=== PATIENT | female | born 2000 | race Caucasian/White ===

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

== ENCOUNTER → 2020-11-10 11:31 | Outpatient (CLI) | payer OTHER, SELFPAY ==
[2020-11-10 10:43] VITALS: BMI 20.6
[2020-11-10 12:20] LABS: Estradiol 30.5 pg/mL; Follicle Stimulating Hormone 7.7 mIU/mL; Luteinizing Hormone 5.7 mIU/mL; Prolactin 8.5 ng/mL; Thyroid Stim Hormone (TSH) 1.62 uIU/mL (0.358-3.74)
[2020-11-10 13:07] LABS: HIV - WCH Non-Reactive (Nonreactive); Hepatitis C Antibody Non-Reactive (Nonreactive)
[2020-11-10 19:39] LABS: Chlamydia Trachomatis by PCR Negative (Negative); Neisserai gonorrhoeae by PCR Negative (Negative); Probe Check PASS; Sample Adequacy Control PASS; Specimen Processing Control PASS
[2020-11-16 01:27] LABS: Rapid Plasmin Reagin (RPR) NONREACTIVE (NONREACTIVE)
== END ==
PROVIDERS: PCP Family Medicine; Referring Provider Obstetrics & Gynecology; Visit Provider Obstetrics & Gynecology
DX: Z11.3 Encounter for screening for infections with a predominantly sexual mode of transmission (principal); N92.6 Irregular menstruation, unspecified
CPT/HCPCS: 36415; 82670; 83001; 83002; 84146; 84443; 86592; 86703; 86803; 87491; 87591

== ENCOUNTER → 2021-01-29 16:34 | Outpatient (CLI) | payer OTHER, SELFPAY ==
[2021-01-29 13:01] VITALS: BMI 20.4
== END ==
PROVIDERS: PCP Family Medicine; Visit Provider Obstetrics & Gynecology
DX: R10.2 Pelvic and perineal pain (principal)
CPT/HCPCS: 87070; 87205

== ENCOUNTER 2021-07-04 19:11 | Emergency (ER) | payer OTHER, SELFPAY ==
[2021-07-04 19:13] VITALS: BP 105/67; PULSE 74; RESP 17; TEMP 36.1; O2SAT 98; BMI 21.9
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
[2021-07-04] MEDS: Lidocaine 1% (20 ml mdv) 20 ML Vial INFILT (21:22)
[2021-07-04] MEDS: Lidocaine/Epi/Tetracaine 50 ML 1 APPLIC TOPICAL (21:22)
[2021-07-04 21:23] VITALS: RESP 18
--- NOTE | 2021-07-05 15:04 | CM.ED ---
SONU Note: SONU called patient. She indicated she was just getting home from the appointment at [facility]. Patient said that she is doing ok. Patient said that she is tired from being in the ED late last night. Patient said that she went to hr appointment at [facility] and is scheduled to began PHP/IOP at the end of next week. Patient indicated she is doing better today than the previous day. Patient denied any SI/HI. Patient was asked if she had any issues or concerns and she said no. No further MH needs at this time. Plan: [facility] Janeen JAVED
== END 2021-07-04 21:24 | disposition home or self-care (01) ==
PROVIDERS: Emergency Provider Emergency Medicine; PCP Family Medicine
DX: S61.215A Laceration without foreign body of left ring finger without damage to nail, initial encounter (principal); F32.9 Major depressive disorder, single episode, unspecified; Z79.3 Long term (current) use of hormonal contraceptives; Z79.899 Other long term (current) drug therapy; W26.0XXA Contact with knife, initial encounter
CPT/HCPCS: 12001; 99283

== ENCOUNTER 2021-07-10 09:52 | Outpatient (RCR) | payer OTHER, SELFPAY ==
--- NOTE | 2021-07-10 09:10 | BH.SGPN.GN ---
Behaviors/Verbalizations/Mental Status: [] Eye contact is good. Motor activity is appropriate. Appearance is neat. Speech is Appropriate. Mood is depressed. Affect is flat. Thoughts are linear and logical. No evidence of psychosis. Reviewed daily check in sheet and no reports of suicidal ideations or intent. Client Response/Progress/Benefit: [] Pt participated at times during group discussion. Attentive. Provided appropriate feedback to peers. Today was her first day in IOP and she reports that she is hoping that IOP will provided her with a ?better mindset? and ?motivation? which have been impacted by her depression. No progress noted as this was her first day. Benefited from group support and encouragement. Group welcomed pt to the group and provided her with advice regarding first day and week in IOP. Will continue in IOP to maintain safety and improve functioning to return to work. Narrative Note: []
--- NOTE | 2021-07-10 10:06 | BH.SGPN.GN ---
Behaviors/Verbalizations/Mental Status: [] Client alert and oriented, casually dressed and groomed. Eye contact good. Motor activity appropriate. Speech within normal limits. Affect congruent, mood depressed. Thoughts linear, logical, no signs of hallucinations or delusions. Client Response/Progress/Benefit: []Pt was well engaged in group AEB taking notes, listening attentively, and providing some input throughout. Attentive during psychoeducation and discussed the importance of goal-setting with the group. Pt indicated ?If I don?t celebrate progress, I might not notice I am getting better or feel like I?m making progress?. Group identified potential benefits of having goals include: they motivate, increase self-esteem, and are needed to have progress, give a sense of accomplishment, and provide a sense of purpose. Group also worked together to identify barriers to goal-setting which included; negative self-talk, lack of motivation, unrealistic expectations, and procrastination. Pt identified personal barrier as lack of motivation and noted that positive affirmations have helped her to feel more motivated in the past. Benefited from increased awareness of benefits and barriers to goal-setting. Pt will continue in IOP to prevent decompensation, reduce depressive and anxiety sx, and improve daily functioning. Narrative Note: []
--- NOTE | 2021-07-10 11:15 | BH.SGPN.GN ---
Behaviors/Verbalizations/Mental Status: []Client alert and oriented, casually dressed and groomed. Eye contact good. Motor activity appropriate. Speech within normal limits. Affect constricted, mood dysthymic. Thoughts linear, logical, no signs of hallucinations or delusions. Client Response/Progress/Benefit: []Pt was an active participant in group discussions and activities. Engaged in activity. Pt identified a SMART goal for the next week which was do 5 minutes of meditation five minutes daily. Reported daily meditation has improved her mental health in the past so would be helpful to get back into the routine. Identified decreased concentration as a barrier. Pt reported she can overcome that barrier by finding a quiet, calming place to sit or complete meditation on a walk. Benefited from group by being able to utilize SMART educate to create a goal. Pt's first day in IOP. Pt to continue IOP to increase healthy coping, improve daily functioning and prevent decompensation. Narrative Note: []
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
[2021-07-11 09:39] VITALS: BP 106/64; PULSE 69
--- NOTE | 2021-07-11 10:10 | BH.SGPN.GN ---
Behaviors/Verbalizations/Mental Status: [] Eye contact is good. Motor activity is appropriate. Appearance is casual. Speech is Appropriate. Mood is depressed. Affect is flat. Thoughts are linear and logical. No evidence of psychosis. Client Response/Progress/Benefit: [] Pt was an active participant in group discussions. Attentive during psychoeducation. Pt along with peers added their perspective on the definition of stigma as it relates to mental health. Pt participated in interactive group discussion on the topic. Pt along with peer identified how stigma can impact one which included; keeps one more depressed, keeps one from recognizing or addressing mental health, keeps us with showing and being honest about our emotions, keeps one from opportunities, can keep one from social and interacting with friends/family, etc, can impact relationships, and can keep one from seeking help for fear of being labeled. Benefited from increased awareness of mental health stigma and how it could impact patient. Will continue in IOP to maintain safety, increase helathy coping, and improve functioning to return to work. Narrative Note: []
--- NOTE | 2021-07-11 11:15 | BH.SGPN.GN ---
Behaviors/Verbalizations/Mental Status: []Client alert and oriented, casually dressed, hygiene appeared to be tended to. Eye contact fair. Motor activity appropriate. Speech within normal limits. Affect constricted, mood dysthymic. Thoughts linear, logical, no signs of hallucinations or delusions. Client Response/Progress/Benefit: []Client engaged participant AEB pt provided some input during small group discussion, taking notes and listening attentively to others. Group brainstormed strategies to combat social and perceived stigma which included: educating others, no longer using negative language about mental illness, being open about mental health, and not reinforcing stigma with behaviors or labels. Client did not share goal to challenge mental health stigma. Client's first week in IOP. Appeared to benefit from increasing awareness of strategies to combat stigma. Will continue IOP tx to increase healthy coping, improve daily functioning and prevent decompensation.
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
--- NOTE | 2021-07-11 13:26 | BH.DR.ITP ---
Initial Treatment Plan Patient Information Visit Information: ADMISSION DATE: EXPECTED LOS: 4-6 weeks Problems/Symptoms Problem #1:: Depression Symptom:: Sadness, hopelessness, anhedonia, decreased appetite, erratic sleep, low energy, decreased concentration, passive suicidal ideation, passive thoughts of Problem #2:: Anxiety Symptom:: Worry, rumination, panic attacks, avoidance
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
--- NOTE | 2021-07-12 09:05 | BH.SGPN.GN ---
Behaviors/Verbalizations/Mental Status: [] Eye contact is good. Motor activity is appropriate. Appearance is casual. Speech is Appropriate. Mood is depressed. Affect is flat. Thoughts are linear and logical. No evidence of psychosis. Reviewed daily check in sheet and pt reports 1/5 for suicidal thoughts and 0/5 for intent. This is baseline for pt. Client Response/Progress/Benefit: [] Pt participated at times during the group discussions. Attentive. Mental health win was attending a dinner with support and completing ADLs (shower). Emotion for today is blah. Shared with the group her brother's chronic issues with substance abuse which have impacted her and her family. Brother recently got into more legal issues which has impacted her mental health and the family dynamic as they struggle with his addiction. Group provided feedback and support which was beneficial. Will continue in IOP to maintain safety, increase healthy coping, and improve functioning. Narrative Note: []
--- NOTE | 2021-07-12 11:12 | BH.SGPN.GN ---
Behaviors/Verbalizations/Mental Status: []Client alert and oriented, casually dressed and appropriately groomed. Eye contact fair. Motor activity appropriate. Speech within normal limits. Affect constricted, mood dysthymic. Thoughts linear, logical, no signs of hallucinations or delusions. Client Response/Progress/Benefit: []Client was a passive participant AEB providing limited input, however did appear to listen attentively to others. Connected with group topic of perspective and the impacts of one?s perspective on mental health. Client worked with the group to identify impact of a negative perspective which included: all or nothing thinking, increased negative self-talk, and hurts relationships. Client appeared to benefit from increasing understanding of mental health benefits of a positive perspective and potential consequences to progress when perspective is negative. Client is to continue IOP to increase healthy coping, improve daily functioning and prevent decompensation.
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
--- NOTE | 2021-07-17 09:00 | BH.SGPN.GN ---
Behaviors/Verbalizations/Mental Status: []Client alert and oriented, casually dressed and groomed. Eye contact good. Motor activity appropriate. Speech within normal limits. Affect congruent, mood reported as stressed but confident. Thoughts linear, logical, no signs of hallucinations or delusions. Reviewed client?s symptom tracker, no risk for suicidal ideation, plan, or intent as of 07/17/21 Client Response/Progress/Benefit: []Client responded well to session AEB attentiveness, proving input, and willing to process with group. Client reports feeling ?confident? today and attributes this to successfully completing the 3 goals she had set for herself over the weekend. Noted allowing herself to acknowledge these accomplishments as progress and give herself credit for them which is something she has traditionally struggled to do. Client went on to discuss additional skills she is using, such as meditation, reaching out to supports, and spending more time outdoors. Indicates that having things to do has helped with reducing mental health symptoms and prevents her from ruminating on current stressors. Discussed struggling with anxious thoughts regarding her finances as she is no longer working, as well as worrying about her brother and the ongoing stressors he is dealing with. Connected with and appeared to benefit from fellow participants discussing trying to focus on what is within their control rather than ruminating on things outside of their control. Noted plans to try and create a schedule of small goals for the week to continue to promote positive mood. Recommended continued IOP tx to improve ability to identify and challenge distortion which reinforce anxiety and mood instability, continue to promote engagement in self-care activities, and further improve communication with supports. Narrative Note: []
--- NOTE | 2021-07-17 10:08 | BH.SGPN.GN ---
Behaviors/Verbalizations/Mental Status: []Client alert and oriented, casually dressed and groomed. Eye contact good. Motor activity appropriate. Speech within normal limits. Affect constricted, mood anxious. Thoughts linear, logical, no signs of hallucinations or delusions. Client Response/Progress/Benefit: []Pt was an active participant in group discussion AEB taking notes and providing input throughout. Attentive during psychoeducation reviewing internal and external obstacles and provided examples throughout. Participated in the reflection activity in which clients mandy pictures depicting their current and desired reality and shared with the group. Pt described her current reality as ?stuck and unmotivated, but also kind of content with being stuck.? Pt described her desired reality as ?having energy again, no waking up wishing I wasn?t here, and being happy.? Pt reflected on strengths she has that will help pt get to desired reality such as taking her medication and ?taking everything home with me from group.? Benefited from group by increasing awareness of current reality and strengths. Will continue IOP tx to prevent decompensation, reduce negative thinking, and improve overall functioning. Narrative Note: []
--- NOTE | 2021-07-17 11:06 | BH.SGPN.GN ---
Behaviors/Verbalizations/Mental Status: []Client alert and oriented, casually dressed and groomed. Eye contact good. Motor activity appropriate. Speech within normal limits. Affect congruent, mood euthymic. Thoughts linear, logical, no signs of hallucinations or delusions. Client Response/Progress/Benefit: []Client engaged during activity and provided ideas on how to cope with internal barriers that keep clients stuck from moving towards goals. Client able to identify barriers to desired reality. Identified barriers to current reality to include: lack of motivation, feeling content with being stuck, and lack of social interaction. Client wants to work on overcoming the barrier of feeling content with being stuck by purposefully getting herself out of her comfort zone. Client plans to tell her boyfriend about her goal to help hold her accountable. Benefited from group by identifying obstacles and solutions to desired reality. Client will continue IOP tx to reduce isolation, increase use of healthy coping skills, and improve overall functioning. Narrative Note: []
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
--- NOTE | 2021-07-19 09:00 | BH.SGPN.GN ---
Behaviors/Verbalizations/Mental Status: []Client alert and oriented, casually dressed and groomed. Eye contact good. Motor activity appropriate. Speech within normal limits. Affect constricted, mood irritable. Thoughts linear, logical, no signs of hallucinations or delusions. Reviewed client?s symptom tracker, no risk for suicidal ideation, plan, or intent as of 07/19/21 Client Response/Progress/Benefit: []Client responded well to session, providing supportive statements and attentive. Client reports feeling agitated and irritable this morning. Client shared she is not sure what is making her more irritable, but client thinks it may because she is not working right now which makes client anxious about money. Client stated when she is irritable she just wants to isolate, but she pushed herself to go to the fair yesterday. Client also shared that being here today is a mental health win because she did not want to come. Client admits that she has not been working on her goals from IOP and was encouraged to practice self-compassion to help bounce back. Appeared to benefit from receiving feedback from group on how to cope with irritability. Progress noted in client's consistent attendance, but client continues to struggle with mood instability. Will continue IOP tx to gain healthy coping skills, reduce distorted thought patterns, and improve functioning. Narrative Note: []
--- NOTE | 2021-07-19 10:10 | BH.SGPN.GN ---
Behaviors/Verbalizations/Mental Status: []Client alert and oriented, casually dressed and groomed. Eye contact good. Motor activity WNL. Speech within normal limits. Affect congruent, mood dysthymic. Thoughts linear, logical, no signs of hallucinations or delusions. Client Response/Progress/Benefit: []Client responded well to session, attentive and engaged throughout discussion and activity. Agreed with session quote and shared ?if you let fear keep you from things then you will only continue to stay stuck where you are?. The group discussed how mindset, one?s reaction to setbacks, and expectations for success determines progress. Client shared fear of letting self or others down has reinforced her fear of failure in the past and led to client not taking changes or giving up. Client appeared to benefit from gaining awareness of the impact fear of failure can have on one?s mental health and wellbeing, noting connecting with how fear of failure may reinforce depression. Progress noted as client continues gain insight and coping skills which have improved depressive symptoms, however struggles with consistency. Will continue IOP to reduce symptoms, combat distortions reinforcing depression and anxiety, and improve daily functioning. Narrative Note: []
--- NOTE | 2021-07-19 11:12 | BH.SGPN.GN ---
Behaviors/Verbalizations/Mental Status: []Client alert and oriented, casually dressed and groomed. Eye contact good. Motor activity appropriate. Speech within normal limits. Affect congruent, mood dysthymic, anxious. Thoughts linear, logical, no signs of hallucinations or delusions. Client Response/Progress/Benefit: []Client responded well to session, engaged in the experiential activity and attentive throughout group processing. Discussed that encouragement from the group aided in reducing negative self-talk and overcoming fear of failure. Client completed the fear of failure worksheet and reported that fear of failure has kept client from ?continuing to pursue goals? and ?returning to the gym?. Client able to identify thoughts and behaviors that reinforce personal fear of failure which included: past negative experiences, fear of not living up to past successes, procrastination, toxic people, and doubting her ability to change. Client attentive during discussion of the different strategies to help overcome fear of failure. Identified wanting to work on being more receptive and open-minded to new and different things or opinions in order to overcome fear of failure. Client has made progress with improving use of opposite action and small goal setting but continues to struggle with consistency and disqualifying the positives. Client will continue IOP tx to promote ongoing behavior activation skill application, reduce depression, and improve engagement in activities she enjoys. Narrative Note: []
--- NOTE | 2021-07-20 09:03 | BH.SGPN.GN ---
Behaviors/Verbalizations/Mental Status: []Eye contact is good. Motor activity is appropriate. Appearance is casual. Speech is Appropriate. Mood is anxious, agitated. Affect is congruent. Thoughts are linear and logical. No evidence of psychosis. Reviewed daily check in sheet, pt reports suicidal ideations as a 1/5 which is consistent to baseline, denies any plan or intent as of this date. Client Response/Progress/Benefit: []Pt receptive of session, participated during the group discussion, and willing to process with group. Emotion for today is reported as ?anxious and angry? to which she attributes difficulties in adjusting to not being employed at this time, wanting to be doing ?better? mental health rodriguez, and family related stressors. Discussed her entire family has COVID right now and although she has not been in contact with them recently, she now must go even longer without reaching out to them. Noted however that her family can be stressful for client and that this may give her an opportunity to take a break and focus on her own self-care. Able to identify a mental health win as accomplishing several small tasks around the house. Notes that this would normally be something she would put off and distract herself with other things. Noted doing well to give herself credit for accomplishing these tasks as she struggles with minimization at times. Continues to struggle with negative self-talk and inconsistent skill application. Recommended continued IOP tx to improve consistent skill application, increase communication with healthy supports, and continue to promote small goal accomplishments. Narrative Note: []
--- NOTE | 2021-07-20 10:10 | BH.SGPN.GN ---
Behaviors/Verbalizations/Mental Status: [] Eye contact is good. Motor activity is appropriate. Appearance is casual. Speech is Appropriate. Mood is depressed. Affect is flat. Thoughts are linear and logical. No evidence of psychosis Client Response/Progress/Benefit: [] Pt was an active participant in group discussion. Attentive during psychoeducation on Conflict Styles ( Avoidant, Competing, Accommodating, and Cooperative). Participated in interactive group discussion on why we tend to avoid conflict. Pt along with peers identified several reasons conflict is often avoided which included; don't want to deal with it, anxiety, it can be awkward, can cause more problems, don't want to get hurt, don't want to hurt others, and fear of rejection. Pt along with peers also identified the reasons why we need conflict which included; helps us set boundaries, advocacy, helps us express needs/emotions, and can improve relationships. Benefited from increased awareness on conflict styles. Will continue in IOP to maintain safety, increase healthy coping, and to improve functionig. Narrative Note: []
--- NOTE | 2021-07-20 11:10 | BH.SGPN.GN ---
Behaviors/Verbalizations/Mental Status: []Client alert and oriented, casually dressed and groomed. Eye contact good. Motor activity appropriate. Speech within normal limits. Affect congruent, mood agitated. Thoughts linear, logical, no signs of hallucinations or delusions. Client Response/Progress/Benefit: []Client engaged in session AEB contributing to discussion and engaging in activity. Client did well to review current conflict style and its impact on mental health. Acknowledged the impact being accommodating and competing has on client?s mental health. Attentive and taking notes during discussion on strategies for more effectively managing conflict in personal life. Client participated in activity and client appeared to struggle with listening to peers? suggestions at times. Client wants to work on not using degrading language and taking a time out when her emotions get too high. Client got feedback from team facilitator and peers on how to verbalize taking a break to one?s partner. Appeared to benefit from gaining strategies to help client better manage conflict. Will continue IOP tx to increase emotional regulation skills, reduce isolative behaviors, and improve overall functioning. Narrative Note: []
--- NOTE | 2021-07-24 09:00 | BH.SGPN.GN ---
Behaviors/Verbalizations/Mental Status: []Eye contact is good. Motor activity is appropriate. Appearance is casual. Speech is Appropriate. Mood is depressed. Affect is congruent. Thoughts are linear and logical. No evidence of psychosis. Reviewed daily check in sheet and no reports of suicidal ideations, plan, or intent. Client Response/Progress/Benefit: []Pt receptive of group, contributing supportive feedback and nodding in relation to others as they shared. Identified emotion for the day as ?warn out? and attributes this to feeling negative and ?down? over the weekend. Initially shared feeling she did not have many ?wins? to report as a result of her negative mood the past few days; however, with encouragement identified several wins. Wins noted as refraining from using unhealthy coping skills when feeling ?off? over the weekend. This is progress as client has a hx of unhealthy means of coping when emotionally dysregulated. Additional win noted as running several times over the weekend and going out to dinner with her boyfriend. Discussed struggling with anxiety during the dinner and began to disqualify this as a positive. Appeared to benefit from working with therapist and fellow participants to combat distortions associated and identify several skills used to manage anxious thoughts throughout the dinner. Continues to struggle with externalization and minimization of progress. Recommended continued IOP tx to improve ability to identify and challenge thought distortions, reduce negative self-talk, and improve mood stability. Narrative Note: []
--- NOTE | 2021-07-24 10:08 | BH.SGPN.GN ---
Behaviors/Verbalizations/Mental Status: []Client alert and oriented, casually dressed and groomed. Eye contact good. Motor activity appropriate. Speech within normal limits. Affect congruent, mood dysthymic. Thoughts linear, logical, no signs of hallucinations or delusions. Client Response/Progress/Benefit: []Client engaged during session AEB client contributing during discussion and completing worksheet. Connected with discussion on crisis and how coping with external crises by using unhealthy coping skills could result in a personal crisis. Group reflected on the importance of having awareness of personal warning signs to prevent reaching crisis point. Group identified potential warning signs for crisis and client completed the personal warning signs worksheet. Client identified personal crisis warning signs to include: getting easily agitated, lack of motivation, and not wanting to take care of herself. Client benefited by increasing awareness of what leads to crisis and personal warning signs. Client will continue IOP tx to increase emotional regulation skills, improve daily functioning, and improve mood stability. Narrative Note: []
--- NOTE | 2021-07-24 11:15 | BH.SGPN.GN ---
Behaviors/Verbalizations/Mental Status: []Client alert and oriented, casually dressed and groomed. Eye contact fair. Motor activity appropriate. Speech within normal limits. Affect congruent. Mood euthymic. Thoughts linear, logical, no signs of hallucinations or delusions. Client Response/Progress/Benefit: []Client responded well to session as evidenced by client listening attentively to others and providing strategies during discussion. Client identified personal warning signs for crisis and gained further awareness of earliest warning signs. Client created a crisis action plan to help client better manage warning signs for crisis. Client?s action plan for no motivation included: set short-term goals, opposite action, increase positive thoughts, go for a walk and do something enjoys. Client appeared to benefit from creating a crisis action plan and increasing self-awareness. Client to continue IOP tx to increase healthy coping, improve motivation, and prevent decompensation.
--- NOTE | 2021-07-26 10:10 | BH.SGPN.GN ---
Behaviors/Verbalizations/Mental Status: [] Eye contact is good. Motor activity is appropriate. Appearance is casual. Speech is Appropriate. Mood is depressed. Affect is flat. Thoughts are linear and logical. No evidence of psychosis. Client Response/Progress/Benefit: [] Pt was an active participant in group discussion and activity. Attentive during psychoeducation on the stages of change. Pt participated in interactive discussion on emotions associated with change (happy, ecstatic, lonely, shocked, surprised, lonely, etc). Pt along with peers identified barriers that may prevent one from making change which included; stuck in routine, habits, fear, others, and responsibilities. Group able to identify the benefits to changes such as personal growth, feeling more positive, increased confidence, healthier environment, improved relationships, and obtaining goals. Benefited from increased awareness of emotions related to change, the change process, and benefits/barriers to change. Will continue in IOP to maintain safety, increase healthy coping, and to improve functioning to return to work. Narrative Note: []
--- NOTE | 2021-07-26 15:33 | BH.MDN_ITS ---
Multi-Disciplinary Note - Note 30-min Individual Time Started:: 11:45 Date: 07/26/21 Purpose of session/treatment goals addressed:: Purpose of session was to address goal 1 from MTP. Eye Contact:: Good Motor Activity:: Appropriate Appearance:: Casual Speech:: Appropriate Mood:: Euthymic Affect:: Congruent Thoughts:: Linear, Logical, No evidence of hallucinations/delusions noted Staff Interventions:: thought challenging, CBT techniques, strengths pers pective, goal setting, taught coping skills Client Response:: Pt reported she accomplished her goals from last session of running at least 3 days, cleaning bathroom and hung out with a friend. Pt stated it was rewarding to recognize the positives she was able to accomplish. Pt stated she is still struggling with what she should do about work. Pt worked with therapist to identify concerns about returning to job. Pt stated she has applied for seeral other jobs that she believes would provide less stress. Pt reported main concern is returning to the job that she knows could potentially be triggering. Pt agreeable to identify pros/cons of returning to job and pros/cons of finding a different job. Pt shared she is still feeling distant from people in her life. Pt stated she will get irritable over small things. Pt reported she is putting forth more effort to stop herself before being reactive which has been helpful. Pt stated positive self-talk and breathing as helpful skills to prevent the reactivity. Pt discussed triggers for her don't care attitude which include when her mom complains about pt's dad and when her boyfriend accuses her of liking another girl since pt identifies as bisexual. Reviewed strategies to help manage identified triggers. Pt agreed talking with boyfriend about his trigger could be helpful but she isn't ready to have that conversation yet. Pt identified goals include: run 3 days and make pro/cons list about work. Risks/Concerns:: pt denies suicidial ideation, plan or intention to date. Progress Toward Goals/Plan:: Progress noted with pt following through with identified small goals last individual session. Pt notes improvement in mood with decrease in depression. Pt utilizing opposite action which has helped pt return to activities she used to enjoy doing. Pt continues to struggle with irritability but starting to use skills to manage in the moment. Pt to continue IOP to reinfroce healthy coping skills, challenge distorted thoughts and prevent decompensation. Time Stopped:: 12:20
--- NOTE | 2021-07-27 09:00 | BH.SGPN.GN ---
Behaviors/Verbalizations/Mental Status: []Pt eye contact good, casually dressed, motor activity appropriate, speech normal rate and tone, mood dysthymic, constricted affect, thoughts linear and intact, no evidence of delusions or hallucinations. Reviewed client?s symptom tracker, no signs of suicidal ideation, plan, or intent as of today. Client Response/Progress/Benefit: []Pt responded well to session AEB by listening to others and sharing thoughts and feelings. Pt identified mental health positive as taking cat to vet yesterday, which she had been avoiding. Pt stated additional mental health positive as feeling less irritated yesterday and not having any arguments with her boyfriend. Pt identified stressor as not sure if she wants to return to her job because is nervous it will be triggering. Pt accepted feedback from peers. Pt to continue IOP to increase daily functioning, challenge distorted thoughts and prevent decompensation. Narrative Note: []
--- NOTE | 2021-07-27 09:05 | BH.SGPN.GN ---
Behaviors/Verbalizations/Mental Status: Eye contact is good. Motor activity is appropriate. Appearance is casual. Speech is appropriate. Mood is anxious. Affect is congruent. Thoughts are linear and logical. No evidence of psychosis. Reviewed daily check in sheet with no reports of suicidal ideations, plan, or intent. Client Response/Progress/Benefit: Client was attentive and engaged throughout group session. Client reports her mood of the day as grateful. Discussed a stressor of having a triggering dream regarding a traumatic event. Client?s anxiety is higher because client currently cannot visit due to the family being in quarantine due to COVID-19. Clinician and group normalized these feelings and offered suggestions such as video calling her family, which the client appeared to benefit from. Client stated she fed her cat and took a shower, which she identified as wins with prompting from clinician. Client indicates per daily symptom tracker no self harm urges which is a win, as it is decreased from previous sessions this week. Will continue IOP treatment to improve functioning, enhance knowledge and application of healthy coping skills, and prevent decompensation. Narrative Note: []
--- NOTE | 2021-07-27 10:13 | BH.SGPN.GN ---
Behaviors/Verbalizations/Mental Status: [] Client alert and oriented, casually dressed and groomed. Eye contact good. Motor activity appropriate. Speech within normal limits. Affect congruent, mood anxious and dysthymic. Thoughts linear, logical, no signs of hallucinations or delusions. Client Response/Progress/Benefit: [] Client active participant AEB providing contributions during group discussion, taking notes, and appeared to listen attentively to peers. Client connected with the topic of relationships. Helped group discuss the benefits of relationships as well as the potential factors maintaining unhealthy relationships. Client stated that unhealthy relationships can lead to difficulties in setting and maintaining boundaries or feeling capable of saying ?No?. She went on to discuss ?we may fall into toxic relationships when toxic behaviors are normalized by other relationships we see. This takes a long time to realize?. Helped group identify the risk factors for unhealthy relationships which included: poor self-esteem, trauma, loneliness, learned behaviors, and not taking care of own mental health. Worked with group to develop a list of the consequences that unhealthy relationships have on mental health. Appeared to benefit from increasing awareness of the impact unhealthy relationships can have on mental health. Pt to continue IOP to maintain depression and healthy coping, as well as continue to promote engagement in healthy supportive activities. Narrative Note: []
--- NOTE | 2021-07-27 11:15 | BH.SGPN.GN ---
Behaviors/Verbalizations/Mental Status: []Client alert and oriented, casually dressed and groomed. Eye contact good. Motor activity appropriate. Speech within normal limits. Affect congruent, mood euthymic. Thoughts linear, logical, no signs of hallucinations or delusions. Client Response/Progress/Benefit: []Client responded well to session, engaged and taking notes. Attentive during psychoeducation about characteristics of healthy, unhealthy and abusive relationships. Client identified within her relationship both herself and partner do well with being respectful to each other. client stated she wants to work on improving her communication by talking with her boyfriend openly about issues versus avoiding tough conversations. Appeared to benefit from brainstorming strategies to build healthier relationships. Will continue IOP tx to reduce negative thoughts, improve healthy coping and prevent decompensation. Narrative Note: []
--- NOTE | 2021-07-31 09:05 | BH.SGPN.GN ---
Behaviors/Verbalizations/Mental Status: []Client alert and oriented, casually dressed and groomed. Eye contact good. Motor activity appropriate. Speech within normal limits. Affect constricted-incongruent to mood, mood euthymic. Thoughts linear, logical, no signs of hallucinations or delusions. Reviewed client?s symptom tracker, no risk for suicidal ideation, plan, or intent as of 07/31/21 Client Response/Progress/Benefit: C[]Client responded well to session, attentive and providing feedback to peers. Client reports feeling refreshed and relaxed this morning. Client stated she got new furniture and a TV this weekend which is a mental health win because now my house is exactly how I want it to be. Client reports this makes her feel safe and comfortable. Client stated this weekend she and her boyfriend hosted family and their house and this triggered anxiety. Client shared she used calming skills and self-talk to regulate her emotions which resulted in client having a good time instead of avoiding. Client reports another mental health win is that she has a job interview later today. Appeared to benefit from reflecting on use of healthy coping skills. Progress noted as client denies any thoughts of suicide and reduced irritability on the daily symptom tracker. Will continue IOP tx to promote mood stability, increase healthy coping skills, and further improve functioning. Narrative Note: []
--- NOTE | 2021-07-31 10:15 | BH.SGPN.GN ---
Behaviors/Verbalizations/Mental Status: []Client alert and oriented, casually dressed and groomed. Eye contact good. Motor activity appropriate. Speech within normal limits. Affect congruent, mood euthymic. Thoughts linear, logical, no signs of hallucinations or delusions. Client Response/Progress/Benefit: []Client receptive to session, participating throughout. Provided input as the group brainstormed the positive and negative aspects of stress on physical and mental health. Group did well to identify the benefits of stress as well as the impact of distress on performance and mental health. 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 Client reports when the stress overflows client reacts with anger outbursts, then panic attacks, hurts self and ends up in the hospital. Client seemed to benefit from increased awareness of current stressors and impact stress has on mental health. Recommended to continue IOP tx to continue use of healthy coping, challenge distorted thoughts and prevent decompensation. Narrative Note: []
--- NOTE | 2021-07-31 11:15 | BH.SGPN.GN ---
Behaviors/Verbalizations/Mental Status: []Client alert and oriented, casually dressed and groomed. Eye contact good. Motor activity appropriate. Speech within normal limits. Affect congruent, mood stressed, dysthymic. Thoughts linear, logical, no signs of hallucinations or delusions. Client Response/Progress/Benefit: [] Client engaged throughout AEB providing input, taking notes, and actively participating in challenge activity. Client provided suggestions and encouragement, as well as listened to other participants? ideas throughout. Able to make connections between activity and stress management skills in daily life. Shared that she had to remind herself ?It?s a game. It?s supposed to be fun.? And challenge herself to ?put it in perspective? which client noted as imported when facing daily stressors as well. Client remained attentive and contributed during discussion about the 4 A's of managing stress, expressing connection with the various benefits of each. Shared wanting to continue to practice the skills of acceptance, noting that she is trying to remember she has to accept her family as they are but that she is allowed to set boundaries and limit time with then when feeling overwhelmed or unsupported. Client seemed to benefit from increased awareness of the impact of stress on mental health and increasing repertoire of stress management strategies. Will continue IOP tx to prevent decompensation, improve use of self-care and boundary setting, as well as continue to promote healthy self-talk. Narrative Note: []
--- NOTE | 2021-08-01 09:05 | BH.SGPN.GN ---
Behaviors/Verbalizations/Mental Status: Eye contact is good. Motor activity is appropriate. Appearance is casual. Speech is appropriate. Mood is euthymic. Affect is congruent. Thoughts are linear and logical. No evidence of psychosis. Reviewed daily check in sheet with no reports of suicidal ideations, plan, or intent. Client Response/Progress/Benefit: Client was engaged and attentive, providing insight to others throughout group session. Reported her emotion of the day as ?relaxed?. Client expressed feeling good about seeing her sister yesterday, who the client reports as a support. Client stated a combined stressor and win is having an interview today. She reports being excited about getting herself out there, but is unsure if she is ready to return to work. Appeared to benefit from supportive group environment and discussion related to work stressors. Client indicates per daily symptom tracker low/moderate depressed mood, anxiety, low agitation, and self harm urges, which she used alternative coping skills to prevent. She stated per daily symptom tracker overall mood and level of functioning has been the same. Will continue IOP treatment to prevent decompensation, maintain safety with healthy coping skills, and increase depression management. Narrative Note: []
--- NOTE | 2021-08-01 10:15 | BH.SGPN.GN ---
Behaviors/Verbalizations/Mental Status: [] Eye contact is good. Motor activity is appropriate. Appearance is neat. Speech is Appropriate. Mood is euthymic. Affect is full. Thoughts are linear and logical. No evidence of psychosis. Client Response/Progress/Benefit: [] Pt was an active participant in group discussion and activity. Attentive during psychoeducation on what it means to take action. Pt identified symptoms that she wants to take gain control over which included avoidance, anger, lack of motivation. Reports that if he was able to gain control over these than she would be healthier and complete more self-care. Increased insight into what could be holding patient back from mental wellness and the importance of taking action on symptoms and obstacles rather than avoiding or ignoring. Will continue in IOP to maintain safety, increase healthy coping, and improve functioning to return to work. Narrative Note: []
--- NOTE | 2021-08-01 11:10 | BH.SGPN.GN ---
Behaviors/Verbalizations/Mental Status: []Client alert and oriented, casually dressed and groomed. Eye contact good. Motor activity appropriate. Speech within normal limits. Affect congruent, mood euthymic. Thoughts linear, logical, no signs of hallucinations or delusions. Client Response/Progress/Benefit: []Client responded well to session, taking notes and participating in worksheet discussion. Client set a goal to gain control over her overacting to small problems. Client plans to work on this by allowing herself to sit with the uncomfortable emotions for 20 minutes, use a calming skill, and then decide what she needs to do. Client reports she will need to give herself time and space to process the emotion and to reflect on what triggered the emotion. Progress noted as client has increased self-awareness and is applying skills outside of IOP. Appeared to benefit from identifying a small goal to benefit mental health. Will continue IOP tx to promote emotional regulation skills and further decrease intensity of symptoms. Narrative Note: []
--- NOTE | 2021-08-01 12:29 | PCM.BH.PN ---
Progress Note Progress Note: History of Present Illness/Interim History: [] Patient is a 21-year-old female who is seen in follow-up at the [facility] behavioral health IOP program. I last saw the patient 3 weeks ago and at that time Lamictal was added to her medication regimen. The patient is tolerating the medication well and has been taking it about 3 weeks. Her mood remains irritable and she feels anger at times but has not had any anger outbursts. Energy level is better lately and she denies feeling hopeless now. She denies any urges for self-harm or actions of self-harm. She denies any panic attacks for the past 3 weeks. She is now drinking 1-2 drinks of alcohol about twice a week. She is trying to decide on job options for her future. She feels she is learning valuable skills in the IOP program. She admits to having occasional passive thoughts of . She denies any suicidal ideation. She has extremely rare thoughts of self-harm like cutting but has not had any recently. Current Psychiatric Medications: [] Celexa 40 mg p.o. daily (on this for 6 months dose increased 2 months ago); Lamictal starter pack, on 50 mg p.o. nightly for 1 more week and then will increase to 100 mg p.o. nightly (started this 3 weeks ago). Mental Status Examination: [] Patient is a 21-year-old female who is seen wearing a mask due to the pandemic and appears normal for stated age, casually dressed and groomed with good hygiene. She has no psychomotor agitation or retardation. Eye contact is good and speech is normal rate and rhythm and fluent with no pressure. Mood is mildly depressed. Affect is constricted. Thought process is goal-directed and organized. Thought content: There is evidence of passive thoughts of . There is no evidence of suicidal ideation homicidal ideation, hallucinations, or delusions. There is evidence of rare thoughts of self-harm by cutting but she has not engaged in any of this. Judgment is intact. Insight is limited but improving. Impulsivity is moderate to high. Diagnoses: [] 1. Major depressive disorder, recurrent, severe without psychosis 2. Rule out bipolar, NOS 3. Generalized anxiety disorder 4. Eating disorder, NOS 5. PTSD 6. Cluster B traits 7. Work, primary support issues Plan: [] The patient will continue the IOP program at [facility] as the structure, support, education and group therapy will hopefully prevent worsening of the patient's symptoms. The patient felt safe during the interview and if it anytime she does not feel safe she will let us know or go to the emergency room. The risks, options, possible complications and side effects of the medications were discussed with the patient and she understands and accepts these. The patient agrees to continue her Lamictal and will increase to 100 mg p.o. daily in 1 week. Prescription was sent in for this #30 with 1 refill. She will continue her Celexa at the present dose. She will avoid using any alcohol or drugs. She will continue to follow-up with her outpatient providers and I will see the patient in follow-up in 2 to 3 weeks or as needed.
--- NOTE | 2021-08-02 09:00 | BH.SGPN.GN ---
Behaviors/Verbalizations/Mental Status: [] Eye contact is good. Motor activity is appropriate. Appearance is casual. Speech is Appropriate. Mood is euthymic. Affect is full. Thoughts are linear and logical. No evidence of psychosis. Reviewed daily check in sheet and no reports of suicidal ideations or intent. Client Response/Progress/Benefit: [] Pt was an active participant in group discussion. Attentive. Provided appropriate feedback. Emotion for today is chil-laxed Mental health win was that interview went well yesterday Shared with the group her anxiety about finding a job that is not too overwhelming for her. Completed self-care. Managing stressors and emotions well. Progress noted per pt report. Benefited from group support, encouragement, and feedback. Will continue in IOP to maintain safety, stabilize mood, and improve functioning to return to work. Narrative Note: []
--- NOTE | 2021-08-02 10:12 | BH.SGPN.GN ---
Behaviors/Verbalizations/Mental Status: []Eye contact is good. Motor activity is appropriate. Appearance is casual. Speech is Appropriate. Mood is euthymic. Affect is congruent. Thoughts are linear and logical. No evidence of psychosis. Client Response/Progress/Benefit: []Pt was an active participant in group discussions. Attentive and provided insights during psychoeducation on benefits and disadvantages of anxiety and review of different types of Anxiety Disorders (Social Anxiety, [place], OCD, PTSD, and Separation Anxiety). Completed worksheet on identifying own physical symptoms or signs of anxiety which pt reported numerous however identified most frequent as: fidgeting a lot, legs shaking, and nervous energy. Benefited from increased awareness of physiological signs of anxiety as well as differences between 'normal' anxiety and anxiety disorder. Will continue in IOP to maintain gains, continue use of healthy coping skills and prevent decompensation. Narrative Note: []
--- NOTE | 2021-08-02 11:10 | BH.SGPN.GN ---
Behaviors/Verbalizations/Mental Status: []Client alert and oriented, casually dressed and groomed. Eye contact good. Motor activity appropriate. Speech within normal limits. Affect congruent, mood euthymic. Thoughts linear, logical, no signs of hallucinations or delusions. Client Response/Progress/Benefit: []Client was an active participant in group discussion and providing good insight to peers. Reviewed safety behaviors she engages in that reinforce anxiety. Some of client?s safety behaviors include avoidance, making excuses, and drinking. Client shared she did not realize drinking was a safety behavior of hers, but client recognized that she drinks to prepare for social events. Attentive during psychoeducation on mindfulness coping skills and their impact on mental health wellness. The group worked together to brainstorm anxiety reduction strategies. Client left a few minutes early and did not get to share what mindfulness skill she wants to try, but client was present for the group brainstorm. Client seemed to benefit from increased repertoire of anxiety reduction skills. Client will continue IOP tx to improve emotional regulation skills and increase impulse control skills. Narrative Note: []
--- NOTE | 2021-08-02 15:34 | BH.MDN_ITS ---
Multi-Disciplinary Note - Note 30-min Individual Time Started:: 11:53 Date: 08/02/21 Purpose of session/treatment goals addressed:: Purpose of session was to address goal 1 from MTP. Eye Contact:: Good Motor Activity:: Appropriate Appearance:: Casual Speech:: Appropriate Mood:: Euthymic Affect:: Congruent Thoughts:: Linear, Logical, No evidence of hallucinations/delusions noted Staff Interventions:: thought challenging, CBT techniques, strengths pers pective, goal setting, taught coping skills Client Response:: Pt stated she did not complete homework of running at least 3 times in the last week. Pt admitted she made excuses each day so that she didn't have to run. pt reported she didn't write down her pros/cons list for returning to work versus getting insurance job. However, stated she had thought about it and was able to verbally share pros and cons she had come up with for staying or going to other job. 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 Pt stated she wants to make srue she selects a job that will not negatively impact her mental health. pt reported she wants to continue to work on herself and be able to maintain stability before she takes on a job that can be triggering or stable. 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 Pt reported she will continue to think about it but can see the pros outweigh the cons. Pt reported her mood is continuing to improve and has noticed decrease in irritability. Pt stated she has felt more relaxed and steady over the last week. Pt identified goals for the week are to write down her mental health cycle and to talk to boyfriend about her frustrations when he accuses her of liking another female. Risks/Concerns:: Denies suicidal ideation, plan or intention to date. Progress Toward Goals/Plan:: Progress noted with pt being able to make decision about her future occupation that she had been avoiding for several weeks. Additional progress noted with pt reporting improved mood stability and decreased irritability over the last week. Continues to revert back to avoidance when feeling anxious and difficulty with consistent application of skills. Pt to continue IOP to maintain gains, continue use of healthy coping and prevent decompensation. Time Stopped:: 12:20
== END 2021-08-02 23:59 ==
LOC: BHIOP 09:52
PROVIDERS: PCP Family Medicine; Visit Provider Psychiatry & Neurology Psychiatry
DX: F33.2 Major depressive disorder, recurrent severe without psychotic features (principal); F41.1 Generalized anxiety disorder; F43.10 Post-traumatic stress disorder, unspecified; F50.9 Eating disorder, unspecified; Z79.899 Other long term (current) drug therapy
CPT/HCPCS: S9480; 90832; 90834; 90853

== ENCOUNTER 2021-08-07 09:00 | Outpatient (RCR) | payer OTHER, SELFPAY ==
[2021-08-03 00:36] VITALS: BP 106/64; PULSE 69
--- NOTE | 2021-08-07 09:05 | BH.SGPN.GN ---
Behaviors/Verbalizations/Mental Status: []Client alert and oriented, casually dressed and groomed. Eye contact good. Motor activity appropriate. Speech within normal limits. Affect congruent, mood euthymic. Thoughts linear, logical, no signs of hallucinations or delusions. Reviewed client?s symptom tracker, no risk for suicidal ideation, plan, or intent as of 08/07/21. Client Response/Progress/Benefit: []Client responded well to session, attentive and providing supportive feedback. Client reports feeling optimistic this morning and shared I finally know what I want to do with my life. Client stated she plans to join the [employer] in November which is something she has been wanting to do for a while. Client shared she also has been practicing self-reflection more often and apologized to someone who she lashed out at. Client stated she would not have taken the time to reflect and apologize in the past. Client's stressor today is that she has been having nightmares each night. Client stated the dreams are not emotionally charged, but they do disrupt her sleep. Appeared to benefit from reflecting on her growth. Client reports on her daily symptom tracker that her functioning and mood have generally been better. Will continue IOP tx to promote mood stability and further improve emotional regulation skills. Narrative Note: []
--- NOTE | 2021-08-07 10:05 | BH.SGPN.GN ---
Behaviors/Verbalizations/Mental Status: [] Eye contact is good. Motor activity is appropriate. Appearance is casual. Speech is Appropriate. Mood is euthymic. Affect is congruent, bright. Thoughts are linear and logical. No evidence of psychosis. Client Response/Progress/Benefit: [] Pt was an active participant in group discussion and activity. Attentive during psychoeducation on coping skills. Sharing, ?If we try to take on the load alone, we may explode and end up here?. Pt along with peers worked together to identify unhealthy coping skills such as; avoidance, lashing out on others, substances, isolation, catastrophizing, and self-harm. Group was able to identify why people use unhealthy coping skills such as; easy, comfortable, work in the short-term, habit, or it?s what they were taught/learned from others. Pt noted connecting with avoidance as a form of unhealthy coping. Pt was able to make connection between the activity (tower building) and the importance of having a strong base/foundation of both internal and external coping skills. Benefited from increased understanding of unhealthy coping skills and the need for developing healthy internal and external coping skills. Pt will continue in IOP to prevent decompensation, increase health coping skills and boundary setting, as well as continue to promote healthy change behaviors. Narrative Note: []
--- NOTE | 2021-08-07 11:05 | BH.SGPN.GN ---
[]Behaviors/Verbalizations/Mental Status: []Client alert and oriented, casually dressed and groomed. Eye contact good. Motor activity appropriate. Speech within normal limits. Affect congruent, mood euthymic and positive. Thoughts linear, logical, no signs of hallucinations or delusions. Client Response/Progress/Benefit: []Client responded well to session, taking notes and contributing throughout. Group discussed the different categories of coping skills which included distraction, emotional release, grounding, self-love, and thought challenging. Client participated in creating a coping skills ?menu? from the five categories of coping skills. Client's coping skill menu included: meditation, setting boundaries, exercise, 5 senses, and keeping area clean. Appeared to benefit from increasing repertoire of healthy coping skills. Will continue tx to improve distress tolerance skills, challenge negative thoughts and prevent decompensation. Narrative Note: []
--- NOTE | 2021-08-08 13:07 | BH.TPR ---
Treatment Plan Review Date of Admission:: 07/10/21 Date of Treatment Plan Review:: 08/08/21 Admitting Diagnoses:: 1. Major depressive disorder, recurrent, severe without psychosis. 2. Rule out bipolar, NOS. 3. Generalized anxiety disorder. 4. Eating disorder, NOS. 5. PTSD. 6. Cluster B traits. 7. Work, primary support issues Current Diagnoses:: 1. Major depressive disorder, recurrent, severe without psychosis. 2. Rule out bipolar, NOS. 3. Generalized anxiety disorder. 4. Eating disorder, NOS. 5. PTSD. 6. Cluster B traits. 7. Work, primary support issues Patient's Response to Treatment:: Pt responding well to program AEB consistently attending IOP sessions, providing input during group discussions and positive feedback to others. Status of Current Problems and Symptoms: Ongoing problems. Pt reports an increase in nightmares recently which has contributed to more disruption in sleep issues. Pt still struggles with lashing out at times with her boyfriend. Per DSM 5 pt's overall symptoms have decreased by 26%. Problem #1 Problem Name:: depression Status of Goals:: Obj 1 - partially met. Pt able to identify healthy coping skills like opposite action, running, and breathing. Pt struggles with utilizing healthy coping skills on consistent basis. Obj 2 - progress noted. Per DSM 5 cross cutting measure pt's depression has decreased by 33%. Team Recommendations:: Team recommends continue to promote self-care, opposite action, challenge distorted thoughts, and getting back into activities she used to enjoy. Problem #2 Problem Name:: anxiety Status of Goals:: Obj 1 - partially met. Pt able to identify calming skills like meditation and belly breathing. Pt struggles with utilizing on consistent basis. Obj 2 - progress noted. Per DSM 5 cross cutting measure pt's anxiety has decreased by 22%. Team Recommendations:: Team recommends continue to promote self-care, opposite action, challenge distorted thoughts, and getting back into activities she used to enjoy.
--- NOTE | 2021-08-09 10:10 | BH.SGPN.GN ---
Behaviors/Verbalizations/Mental Status: [] Eye contact is good. Motor activity is appropriate. Appearance is casual. Speech is Appropriate. Mood is anxious. Affect is congruent. Thoughts are linear and logical. No evidence of psychosis. Client Response/Progress/Benefit: [] Pt was an active participant in group discussions and activity. Attentive during psychoeducation. Along with peers provided insight into topics discussed which included; What is social support? Why is social support important? What are the benefits of using our supports? How does a lack of strong social supports impact our mental health and symptom management? Engaged in interactive discussion on the above topics. Participated in activity and was able to connect the activity to the topic of creating and maintaining a balance of social supports. Benefited from increase awareness of the benefits to a balanced social support and ways to create new social supports. Will continue in IOP to maintain safety, increase healthy coping and improve functioning to return to work. Narrative Note: []
--- NOTE | 2021-08-09 11:03 | BH.SGPN.GN ---
Behaviors/Verbalizations/Mental Status: []Client alert and oriented, casually dressed and groomed. Eye contact good. Motor activity appropriate. Speech within normal limits. Affect constricted, mood anxious, dysthymic. Thoughts linear, logical, no signs of hallucinations or delusions. Client Response/Progress/Benefit: []Client an active participant throughout AEB contributing to discussion and taking notes. Client participated in the group activity highlighting the various barriers to effectively utilizing supports and strategies for improving support. Attentive and taking notes during discussion of the 5 ways our supports can support us (emotional, tangible, affirmational, network/belonging, and instructional) and the group listed examples for all types. Client reports wanting to work on increasing networking and appraisal supports, noting this will help provide increase sense of surpose, as well as maintain the progress she has made in IOP tx. Client plans to do this by reaching out to supports rather than isolating or minimizing, joining a gym, as well as researching potential aftercare resources. Client seemed to benefit from identifying the type of support and how this support will aid in promoting overall mental wellness. Will continue IOP tx to prevent decompensation, continue to promote mood stability and healthy boundary setting, and improve self-care. Narrative Note: []
--- NOTE | 2021-08-09 11:45 | BH.MDN ---
Multi-Disciplinary Note - Note 60-min Individual Time Started:: 09:03 Date: 08/09/21 Purpose of session/treatment goals addressed:: Purpose of session was to address goal 1 from master treatment plan. Eye Contact:: Good Motor Activity:: Appropriate Appearance:: Casual Speech:: Appropriate Mood:: Euthymic Affect:: Full, Congruent Thoughts:: Linear, Logical, No evidence of hallucinations/delusions noted Staff Interventions:: CBT techniques, discharge planning, reviewed DSM-5, goal setting Client Response:: Pt reported she accomplished both goals from last individual therapy session. Pt stated she was able to have a conversation with her boyfriend about her frustrations with her boyfriend having an issue her identifying as bisexual. Pt reported he had accused her several days ago about having a crush on one of her friends that is a woman. Pt stated she was angry with him and did go off. Pt reported a couple days ago they had another conversation about this and she was able to communicate calmly how it made her feel when he accuses her of wanting to leave him for a woman. pt stated she knows it's something they will need to talk about again so it doesn't put a wedge in their relationship. Pt stated she worked on her homework assignment of identifying her crisis cycle. Pt reported it first starts with irritability then she will isolate because she doesn't want to say anything hurtful to others. Pt stated her hygiene decreases, low motivation, and difficulty completing responsibilities. Pt reported this pattern eventually leads to her hurting herself. Pt stated after she hurts herself she typically gets help then does better for awhile until she repeats the cycle again. Pt worked with therapist to identify strategies to help overcome irritability. With assistance from therapist pt identified communicating to supports when irritable, pause before she responds, engage in hobbies (coloring, running, lifting, and hiking), and increased use of healthy coping skills (meditation, breathing, running and exercise). Pt reported she has made the decision to join the [employer] November 2021. Pt noted she has made progress with improved irritability, decreased suicidal thoughts, increased awareness of distorted thoughts, and increased use of healthy coping skills. Pt agreed to contact referrals provided for individual counseling and psychiatry to establish aftercare once discharges from [facility] in two weeks. Risks/Concerns:: Denies suicidal ideation, plan or intention to date. Progress Toward Goals/Plan:: Progress noted AEB pt's DSM 5 cross-cutting scores demonstrating a decrease in symptoms compared to intake scores. Pt reporting decrease in irritability, improved outlook on life, and increased use of healthy coping skills. Pt continues to struggle at times with overreacting to situations and difficulty managing emotions in the moment. Plan is for pt to discharge in two weeks. Time Stopped:: 10:00
--- NOTE | 2021-08-10 09:05 | BH.SGPN.GN ---
Behaviors/Verbalizations/Mental Status: []Eye contact is good. Motor activity is appropriate. Appearance is casual. Speech is appropriate. Mood is euthymic. Affect is congruent. Thoughts are linear and logical. No evidence of psychosis. Reviewed symptom tracker sheet with no reports of suicidal ideations, plan, or intent. Client Response/Progress/Benefit: []Client was engaged and attentive throughout group session, participating in group discussions. Client reported a win of passing the entrance exam to the [employer], which made her feel accomplished. Client reported ongoing stressors regarding her family, but that she is working on accepting that there are things that are out of her control. This is progress as client has struggled to do so in the past. Appeared to benefit from group discussion regarding boundary setting with family. Client indicates per daily symptom tracker that her mood has been generally better, and indicates low/moderate anxiety, which is within her baseline. Will continue IOP treatment to improve boundary setting and prevent decompensation. Narrative Note: []
--- NOTE | 2021-08-10 10:12 | BH.SGPN.GN ---
Behaviors/Verbalizations/Mental Status: []Client alert and oriented, casually dressed and groomed. Eye contact good. Motor activity appropriate. Speech within normal limits. Affect congruent, mood euthymic. Thoughts linear, logical, no signs of hallucinations or delusions. Client Response/Progress/Benefit: [] Client engaged in session AEB taking notes, contributing to discussion, and providing examples throughout. Client shared connecting with the importance of setting boundaries and noted that she has had to work on setting healthier boundaries with her family recently. Client shared the example of not speaking to her father when he?s intoxicated in order to protect her own emotional boundaries. Client assisted group with identifying benefits of setting boundaries such as improved relationships, reduced anxiety, increased sense of self-respect, and feeling validated. Listened during psychoeducation on different types of boundaries. Client seemed to benefit from increased awareness of how boundaries impact mental health and the different types of boundaries there are. 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 Will continue IOP tx promote gains, continue to improve healthy boundaries, as well as improve self-care.? Narrative Note: []
--- NOTE | 2021-08-10 11:03 | BH.SGPN.GN ---
Behaviors/Verbalizations/Mental Status: []Client alert and oriented, casually dressed and groomed. Eye contact good. Motor activity appropriate. Speech within normal limits. Affect constricted, mood euthymic. Thoughts linear, logical, no signs of hallucinations or delusions. Client Response/Progress/Benefit: []Client responded well to session AEB listening attentively to peers and providing input. Client engaged in the boundary self-assessment and was attentive during psychoeducation on the different boundary styles. Noted she connects most with the porous boundary setting style, but it depends on ?my mood and where I?m at.? Client reports when she is apathetic and angry she is rigid with her boundaries. Client stated she is porous often because she ?hates saying no.? Client was given a handout on strategies for healthy boundary setting. Client identified wanting to work on practicing saying no using the example statements from the handout and to avoid using vague response. Progress noted in client?s increased motivation. Will continue IOP tx to improve mood stability, reduce negative thinking, and increase application of healthy coping skills. Narrative Note: []
--- NOTE | 2021-08-14 09:05 | BH.SGPN.GN ---
Behaviors/Verbalizations/Mental Status: [] Eye contact is good. Motor activity is appropriate. Appearance is casual. Speech is Appropriate. Mood is euthymic. Affect is full. Thoughts are linear and logical. No evidence of psychosis. Reviewed daily check in sheet and no reports of suicidal ideations or intent. Client Response/Progress/Benefit: [] Pt was an active participant in group discussion. Attentive. Provided appropriate feedback. Emotion for today is chill. Daily symptom tracker notes2/5 for anxiety and agitation. Mental health win include managing emotions well over the weekend. She has made a decision not to return to her job and is pursuing a job that is more relaxed while she figures out what she wants to do for her future. Short check-in stating that she currently is doing well. She discussed how she will have periods of stability and then depression. Group encouraged her to continue to work on and try coping skills while feeling stable. Beneifted from group support, encouragement, and feedback. Progress noted per pt report. Will continue in IOP to maintain gains and prevent decompensation. Narrative Note: []
--- NOTE | 2021-08-14 10:10 | BH.SGPN.GN ---
Behaviors/Verbalizations/Mental Status: []Client alert and oriented, casually dressed and groomed. Eye contact good. Motor activity appropriate. Speech within normal limits. Affect congruent, mood euthymic. Thoughts linear, logical, no signs of hallucinations or delusions. Client Response/Progress/Benefit: []Pt providing feedback during discussion and attentive during psychoeducation. Took notes as peers identified obstacles or barriers that hinder our ability to communicate our emotions effectively, especially in stressful situations. Group identified the following obstacles; not knowing how to express self, distorted thought patterns, personalizing, and lashing out. Pt provided insight on how emotion and mood can impact effective communication. Pt took an active role during activity and reported that lashing out and overanalyzing are often a barrier to being able to manage her emotions and communicating in stressful situations. Benefited from increased awareness on how our emotions impact our communication. Will continue in IOP to promote emotional regulation skills, further increase distress tolerance skills, and improve daily functioning. Narrative Note: []
--- NOTE | 2021-08-14 11:14 | BH.SGPN.GN ---
Behaviors/Verbalizations/Mental Status: []Client alert and oriented, casually dressed and groomed. Eye contact good. Motor activity appropriate. Speech within normal limits. Affect congruent, mood euthymic. Thoughts linear, logical, no signs of hallucinations or delusions. Client Response/Progress/Benefit: []Client did well to remain engaged in session AEB listening attentively to peers, taking notes, and providing input throughout. Worked with group to process the activity completed in previous session and identify skills used to better manage emotions experienced throughout. Reflected that she struggle with managing emotions with feeling out of control. Attentive during psychoeducation on 4 zones of regulation. Client able to identify feelings and behaviors for each zone. Client identified that ?green zone? means feeling more neutral, relaxed, and motivated. Able to identify specific coping skills to support themself in each zone which included: exercise/go to the gym, opposite action, and self-care activities. Benefited from increased education on zones of regulation or stages of alertness for emotions and healthy coping skills to use for each zone. Continues to struggle with negative self-talk and unrealistic expectations of self. Will continue IOP tx to prevent decompensation, increase thought challenge and boundary setting skills, as well as improve emotion regulation skills. Narrative Note: []
--- NOTE | 2021-08-14 15:11 | BH.MDN_ITS ---
Multi-Disciplinary Note - Note 30-min Individual Time Started:: 11:55 Date: 08/14/21 Purpose of session/treatment goals addressed:: Purpose of session was to address goal 2 from MTP and discuss discharge plans. Eye Contact:: Good Motor Activity:: Appropriate Appearance:: Casual Speech:: Appropriate Mood:: Euthymic Affect:: Full Thoughts:: Linear, Logical, No evidence of hallucinations/delusions noted Staff Interventions:: CBT techniques, discharge planning, goal setting, other - maintenance plan Client Response:: Pt reported she did not accomplish goal from last week of making an appointment with outpatient therapist or psychiatrist. However, pt stated she did narrow her therapist list to 4 people and will call today to schedule with one of them. Pt reported she will also call today to schedule with psychiatry. Pt stated the weekend went well. Pt reported continued improvement with decreased depressive symptoms, decreased anxiety and decreased irritability. pt stated she did have a moment in which she didn't use effective communication with her boyfriend when irritated. However, she was able to recognize it and apologize. Pt reported some anxiety about not having a job yet since she will not be returning to [employer]. 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 Pt responded well to education about developing a m aintenance plan. Pt agreeable to work on developing maintenance plan for homework in which she will identify what she needs to do daily, weekly and monthly to help maintain treatment progress. Risks/Concerns:: Denies suicidal ideation, plan or intention to date. Progress Toward Goals/Plan:: Progress noted with pt reporting continued decrease in anxious and depressed symptoms. Pt denies suicidal thoughts for several weeks. Pt applying skills taught throughout group and individual sessions. Plan is for pt to discharge from [facility] next week. Pt has homework to make appointments with individual counselor and psychiatry prior to discharge. Time Stopped:: 12:30
--- NOTE | 2021-08-15 09:00 | BH.SGPN.GN ---
Behaviors/Verbalizations/Mental Status: []Eye contact is good. Motor activity is appropriate. Appearance is casual. Speech is appropriate. Mood is depressed. Affect is constricted. Thoughts are linear and logical. No evidence of psychosis. Reviewed daily symptom tracker sheet with no reports of suicidal ideations, plan, or intent. Client Response/Progress/Benefit: []Client was disengaged throughout group session, which is not typical of her baseline. Client reported her emotion of the day as ?not good.? Client reported experiencing a recurrent trauma nightmare multiple nights this week. Client reports talking herself through her feelings upon waking, reminding herself it was not real. Appeared to benefit from group discussion regarding not dwelling in negative thoughts and being able to have a good day even if you had a bad moment. Client indicates per daily symptom tracker increased anxiety and self harm urges from previous session, but within client?s baseline. Will continue IOP treatment to increase depression management skills and increase functioning. Narrative Note: []
--- NOTE | 2021-08-15 11:10 | BH.SGPN.GN ---
Behaviors/Verbalizations/Mental Status: []Client alert and oriented, casually dressed and groomed. Eye contact good. Motor activity appropriate. Speech within normal limits. Affect constricted, mood irritated. Thoughts linear, logical, no signs of hallucinations or delusions. Client Response/Progress/Benefit: []Pt was engaged throughout AEB participating in discussion and taking notes. Pt did well during the short activity to recognize frustration in the moment and reported she wanted to quit, but pt used opposite action. Contributed as group brainstormed healthy coping skills for better managing anger which included: deep breathing, counting, exercise, DDD, and looking at the consequences of responding in anger. Pt also gained awareness of internal costs of unmanaged anger. Pt appeared to benefit from identifying different techniques to manage anger as well as gaining awareness of the costs of anger. Pt reported when her anger is unmanaged, pt gets ?mean? and has hurt herself. Pt selected sitting with the emotion rather than acting on it as well as self-compassion to better manage anger. Will continue IOP tx to promote gains, further improve emotional regulation skills, and establish aftercare. Narrative Note: []
--- NOTE | 2021-08-15 11:11 | PCM.BH.PN ---
Progress Note Progress Note: History of Present Illness/Interim History: [] The patient is a 21-year-old female who is seen in follow-up at the [facility] behavioral health IOP program. I last saw the patient 2 weeks ago and she at that time continued slowly increasing her Lamictal dose. She is now on 100 mg and has been on this dose for 1 week now and is tolerating it well. She feels she is really benefiting from the program and has learned a lot of valuable skills to help manage her emotions. The patient states that she is feeling pretty steady and that her mood is less depressed and much less irritable and less angry than she was prior to starting the Lamictal. She admits that she still has passive thoughts that she would not care if she on occasion but this is much less than twice a week now. She denies any suicidal ideation, panic attacks or actions of self-harm. She did have some mild urges to cut herself today but she has been able to use the skills she is learning in the program to resist any self-harm action. She has not cut herself since before starting the IOP program. Patient remains somewhat stressed by not having a job. 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 The patient denies using alcohol recently and states that she has only had 1 drink or less in the last 2 weeks. Current Psychiatric Medications: [] Lamictal 100 mg p.o. nightly (on this dose for 1 week now); Celexa 40 mg p.o. daily (on this dose for 2 months now). Mental Status Examination: [] The patient is a 21-year-old female who is seen wearing a mask due to the pandemic and is casually dressed and groomed with good hygiene. She has no psychomotor agitation or retardation. Eye contact is good and speech is normal rate and rhythm and fluent with no pressure. Mood is minimally depressed. Affect is full and normal. Thought process is goal-directed and organized. Thought content: There is evidence of rare passive thoughts of now. There is no evidence of suicidal ideation, homicidal ideation, hallucinations or delusions. There is evidence of self-harm by cutting urges today only but patient is able to resist this. Judgment is intact. Insight is fair and improving. Impulsivity is moderate to high. Diagnoses: [] 1. Major depressive disorder, recurrent, severe without psychosis 2. Rule out bipolar, NOS 3. Generalized anxiety disorder 4. Eating disorder, NOS 5. PTSD 6. Cluster B traits 7. Work and primary support issues Plan: [] The patient will continue the IOP program at [facility] as the structure, support, education, and group therapy will hopefully prevent worsening of the patient's symptoms. She felt safe during the interview and if it anytime she does not feel safe she will let us know or go to the emergency room. The patient will continue her current medication regimen and no changes were made today. The patient will continue to avoid using any alcohol or drugs. She will continue to use the skills she is learning to resist any thoughts of self-harm. She will continue to follow-up with her outpatient providers. The patient did not need any prescriptions today either.
--- NOTE | 2021-08-16 09:05 | BH.SGPN.GN ---
Behaviors/Verbalizations/Mental Status: [] Eye contact is good. Motor activity is appropriate. Appearance is casual. Speech is Appropriate. Mood is depressed/irritable. Affect is congruent. Thoughts are linear and logical. No evidence of psychosis. Reviewed daily check in sheet and no reports of suicidal ideations or intent. Client Response/Progress/Benefit: [] Pt was an active participant in group activity. Attentive. Provided appropriate feedback. Emotion for today is chandler. Daily symptom tracker notes 12/08 for anxiety and depression. Shared yesterday was a shit-day. Reports that she was irritable and tired throughout the day. No specif trigger yesterday for being overwhelmed. Urges to sleep or isolate after IOP yesterday however utilized opposite-action which resulted in her going to exercise. Reports that this helped immensely and she felt proud of herself for utilizing healthy skills to improve mood. She got negative news after the workout from her mother who told pt that she is planning on her father. Pt was not shocked about this as her parents have had a very conflicted relationship for several years, however she is concerned about how her father will react (anger). Benefited from group support, encouragement, and feedback. Progress noted per patient report. Will continue in IOP to prevent decompensation, increase healthy coping, and improve fuinctionin to return to work. Narrative Note: []
--- NOTE | 2021-08-16 10:10 | BH.SGPN.GN ---
Behaviors/Verbalizations/Mental Status: [] Eye contact is good. Motor activity is appropriate. Appearance is casual. Speech is Appropriate. Mood is depressed/irritable. Affect is congruent. Thoughts are linear and logical. No evidence of psychosis. Client Response/Progress/Benefit: [] Pt was an active participant in group discussion and activity. Attentive during psychoeducation on anger. Participated in interactive discussion on reasons for anger and some positive benefits which include; standing up for something, sports, competition, causes us to set boundaries, and motivates us into action. Participated in discussion on the emotions that underlay anger or feed anger which pt identified were annoyance, frustration, and being tired. Patient also shared how anger manifests which is being mean, yelling, or shutting down. Benefited from increased understanding of anger and how it impacts individuals. Will continue in IOP to maintain gains, prevent decompensation, and increase healthy coping. Narrative Note: []
--- NOTE | 2021-08-16 10:16 | BH.SGPN.GN ---
Behaviors/Verbalizations/Mental Status: []Client alert and oriented, casually dressed and groomed. Eye contact good. Motor activity appropriate. Speech within normal limits. Affect congruent, mood euthymic. Thoughts linear, logical, no signs of hallucinations or delusions. Client Response/Progress/Benefit: []Pt was an active participant AEB pt participating in activity, taking notes, and contributing to discussion. Pt worked with group to identify benefits of effective problem solving. Listened during psychoeducation about ABCDE problem solving method. Worked with group to identify barriers to effective problem solving which included: irrational thinking, impatience, indecisiveness, not having skills, feeling overwhelmed, and using substances. Pt reported there are certain problems still occurring within her relationship that ?aren?t my problem anymore, my boyfriend needs to work on his own insecurities.? Pt seemed to benefit from increased awareness of strategies to help solve a problem. Pt will continue IOP tx to reinforce healthy coping skills and further improve emotional regulation skills. Narrative Note: []
--- NOTE | 2021-08-16 11:13 | BH.SGPN.GN ---
Behaviors/Verbalizations/Mental Status: []Eye contact is good. Motor activity is appropriate. Appearance is casual. Speech is Appropriate. Mood is euthymic. Affect is congruent. Thoughts are linear and logical. No evidence of psychosis. Client Response/Progress/Benefit: []Pt responded well to session as evidenced by contributing during challenge activity, listening to peers, and providing input throughout. Processed how strategies used for problem solving in activity can be applied to daily life. Completed problem solving worksheet and identified the problem she wants to work on as ?develop healthier anger management skills?. Pt identified skills she can utilize to work on this problem include: increase awareness of emotions and triggers for anger, reflect on what safe ways to express anger, use supports to encourage healthier skills, and practice. Discussed that working to solve this problem will aid in increasing self-confidence, reduce unhealthy coping behaviors, improve relationships, and decrease negative self-talk. Pt seemed to benefit from identifying strategies to problem solve through a problem currently impacting mental health. Recommended continued tx to further improve consistent healthy coping and self-care, continue to promote healthy conflict resolution, and improve mood stability. Narrative Note: []
--- NOTE | 2021-08-21 09:05 | BH.SGPN.GN ---
Behaviors/Verbalizations/Mental Status: [] Eye contact is good. Motor activity is appropriate. Appearance is casual. Speech is Appropriate. Mood is depressed. Affect is flat. Thoughts are linear and logical. No evidence of psychosis. Reviewed daily check in sheet and no reports of suicidal ideations or intent. Client Response/Progress/Benefit: [] Pt was an active participant in group discussion. Attentive. Emotion for today is anxious. She reports increase anxiety, poor sleep, poor appetite, and nightmares in the past week. She attributes this to psychosocial stressors including her parents and brother. Reports that she has been exercising to improve her mood and decrease isolation however is concerned that this could let to hyper-focus on her health and weight which happened in the past. She shared past struggles. Currently she is eating less however is eating regularly. Notes due to awareness and insight she feels more confident that she will not let herself obsess about exercise. Regression noted however she reports feeling hopeful about the future with plans to go back to school in November for a new career. Will continue in IOP to maintain safety, increase healthy coping, and to prevent decompensation. Narrative Note: []
--- NOTE | 2021-08-21 10:15 | BH.SGPN.GN ---
Behaviors/Verbalizations/Mental Status: []Client alert and oriented, casually dressed and groomed. Eye contact good. Motor activity appropriate. Speech within normal limits. Affect congruent, mood euthymic. Thoughts linear, logical, no signs of hallucinations or delusions. Client Response/Progress/Benefit: []Client was an active participant AEB contributing to discussion and staying engaged with group activity. Connected with the topic of pitfalls and helped the group discuss barriers that keep them from choosing a healthier path to mental wellness such as pitfalls. Group worked together to identify examples of personal pitfalls which included: negative thoughts, avoidance of things need to do, seek external validation, limited self-reflection, and maintaining toxic relationships. Client shared her personal pitfalls as avoidance behaviors, isolation, having high expectations, and all or nothing thinking. Engaged during the activity by offering group members encouragement and problem solving techniques. Client benefited from group as she learned her barriers from improving her mental symptoms. Client will continue IOP to increase the use of healthy coping skills, reduce negative thinking, and improve mood.
--- NOTE | 2021-08-21 12:43 | BH.MDN_ITS ---
Multi-Disciplinary Note - Note 45-min Individual Time Started:: 11:30 Date: 08/21/21 Purpose of session/treatment goals addressed:: Purpose of session was to discuss upcoming discharge and create maintenance plan. Eye Contact:: Good Motor Activity:: Appropriate Appearance:: Casual Speech:: Appropriate Mood:: Anxious Affect:: Congruent Thoughts:: Linear, Logical, No evidence of hallucinations/delusions noted Staff Interventions:: thought challenging, CBT techniques, discharge planning, other - collaborated to develop maintenance plan Client Response:: Pt reported she isn't feeling the best today because didn't get a lot of sleep last night. Pt reported she has been having more nightmares recently that has been disrupting her sleep. Pt stated her appetite has been decreased but she has been making herself eat something each day. Pt reported she is feeling anxious that her mom is considering leaving her dad. Pt stated she knows this would be a healthy choice for her mom but is anxious what will happen to her dad if he doesn't have anyone. Pt reported maybe her dad would get treatment for his alcoholism if her mom leaves him. Pt stated she is trying to cope with this situation by focusing on what's in her control. Pt reported she is being away of her warning signs so she can be proactive with her coping skills. Pt worked with therapist to complete her maintenance plan. Identified daily tasks to include: meditate, stretching, eating at least 2 meals, shower, personal hygiene, belly breathing practice and dishes. Identified weekly tasks to include: laundry, running/exercise, hanging out with friends, hanging out with family, home cooked meals, therapy, and weekly check-in. Identified monthly tasks to include: psychiatry appointment, date night with boyfriend and gun range practice. Pt stated additional strategies to help include: boundary setting, anger check-in and mindful eating. Pt reported she is feeling ready to discharge from [facility]. Risks/Concerns:: Denies suicidal ideation, plan or intention to date. future focused. Progress Toward Goals/Plan:: Progress noted AEB pt reporting improved mood stability, decreased irritability, improved communication skills, able to challenge negative thoughts, utilizing healthy skills more consistently, and decreased anxiety. Plan is for pt to discharge this week. Pt will start [facility] Aftercare group program in two weeks. Pt waiting to hear back from [facility] to set up psychiatry appointment. Pt has made a call to [facility] in [place] and is waiting for therapist to call her back. Time Stopped:: 12:15
--- NOTE | 2021-08-23 09:00 | BH.SGPN.GN ---
Behaviors/Verbalizations/Mental Status: []Pt eye contact fair, casually dressed, motor activity appropriate, speech normal rate and tone, mood irritable, constricted affect, thoughts linear and intact, no evidence of delusions or hallucinations. Reviewed client?s symptom tracker, no signs of suicidal ideation, plan, or intent as of today. Client Response/Progress/Benefit: []Pt responded well to session AEB listening attentively to group and sharing thoughts and feelings. Pt's mood and perspective seemed to be influenced by other group members. Pt focused on the negatives when other group members brought up negative comments about coping skills. Pt identified mental health positive as working out last night. Additional positive as challenging her negative perspective about another woman in her workout class being better than pt. Pt identified stressor as worried she might have to see her brother this weekend and she hasn't spoken to him since he caused a car accident a month ago. Recognized she could be jumping to conclusions since she didn't ask her [id number] if her brother was going to be going to pt's house too. Pt seemed to benefit from support from peers. Pt to continue IOP to increase consistent utilization of healthy coping skills, challenge distorted thoughts and prevent decompensation. Narrative Note: []
--- NOTE | 2021-08-23 10:06 | BH.SGPN.GN ---
Behaviors/Verbalizations/Mental Status: []Eye contact is good. Motor activity is appropriate. Appearance is casual. Speech is Appropriate. Mood is irritable. Affect is congruent. Thoughts are linear and logical. No evidence of psychosis Client Response/Progress/Benefit: []Pt was an engaged participant in group discussion, providing input and was attentive during psychoeducation. Participated in short activity about automatic thoughts and shared that mood and past experiences can impact automatic thoughts. Group was primarily educational; therapist introduced and gave examples of the most common cognitive distortions. Benefited from education and increased awareness of cognitive distortions and the role that they play our behaviors and emotions. Pt reported predicting the future and all or nothing thinking. Shared she has been trying to catch negative thoughts and not allow those to thoughts to control her behavior. Will continue IOP tx to reinforce healthy coping skills and establish aftercare. Narrative Note: []
--- NOTE | 2021-08-23 11:16 | BH.SGPN.GN ---
Behaviors/Verbalizations/Mental Status: []Eye contact is good. Motor activity is appropriate. Appearance is casual. Speech is Appropriate. Mood is euthymic. Affect is congruent. Thoughts are linear and logical. No evidence of psychosis. Client Response/Progress/Benefit: []Pt was an active participant, taking notes and providing input throughout group discussion and activity. Attentive during psychoeducation on cognitive distortions not discussed in previous group and shared several examples of distortions she struggles with. Pt indicated connecting with distortions of personalization, disqualifying the positives, and overgeneralization. Shared personal example of personalization when it comes to her family. Pt was an actively engaged participant in Cognitive Distortions Jeopardy, providing input and suggestions to small group. Utilized notes from psychoeducation on cognitive distortions to assist peers in correctly answering questions. Expressed benefitting from challenging herself to actively reframe distortions in the moment. Experiential activity was beneficial as it provided a way for patient to review notes and handouts during psychoeducation to answer questions for the game. Will continue in [facility] tx to further improve application healthy coping skills for more consistent management of symptoms, improve consistent boundaries and communication with supports, as well as further improve ability to manage stressors impacting ability to function at baseline. Narrative Note: []
--- NOTE | 2021-08-24 09:05 | BH.SGPN.GN ---
Behaviors/Verbalizations/Mental Status: Eye contact is good. Motor activity is appropriate. Appearance is casual. Speech is appropriate. Mood is anxious. Affect is constricted. Thoughts are linear and logical. No evidence of psychosis. Reviewed daily symptom tracker sheet with no reports of suicidal ideations, plan, or intent. Client Response/Progress/Benefit: Client was engaged in group session. Client reported her emotion of the day as anxious, as today is her last day of IOP, though she is excited to have completed the program. Client identified that she plans to participate in the aftercare program. Client was constricted and denied to share further when prompted by therapist. 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 Client indicated per daily symptom tracker that her mood and ability to function have been generally the same.Will discharge from IOP today as client has met tx goals and no longer meets criteria for IOP level of care. Narrative Note: []
--- NOTE | 2021-08-24 10:10 | BH.SGPN.GN ---
Behaviors/Verbalizations/Mental Status: []Eye contact is good. Motor activity is appropriate. Appearance is casual. Speech is Appropriate. Mood is irritable. Affect is constricted. Thoughts are linear and logical. No evidence of psychosis Client Response/Progress/Benefit: []Pt was an active participant in group discussion. Attentive during psychoeducation on Conflict Styles ( Avoidant, Competing, Accommodating, and Collaborating). Participated in interactive group discussion on benefits of conflict.? Pt along with peers identified several reasons conflict is often avoided which included; not wanting to hurt others, high emotions, wanting short-term relief, and lack of awareness. Pt believes the conflict style she most often uses are accommodating and competing. Pt reports belief she is much less competing now then when she started IOP. Pt shared she still struggles with being accommodating and putting others? needs ahead of her own. Pt shared ?I still would rather my feelings get hurt than hurt someone else and I know that?s probably not good.? Will discharge from IOP tx today as pt has met treatment goals and no longer meets criteria for IOP level of care. Narrative Note: []
--- NOTE | 2021-08-24 11:17 | BH.SGPN.GN ---
Behaviors/Verbalizations/Mental Status: []Client alert and oriented, casually dressed and groomed. Eye contact good. Motor activity appropriate. Speech within normal limits. Affect congruent, mood agitated. Thoughts linear, logical, no signs of hallucinations or delusions. Client Response/Progress/Benefit: []Client engaged in session AEB contributing to discussion and engaging in activity; however, t times becoming distracted due to own thoughts and agitated mood. Client did well to review conflict styles and the various impacts of each on mental health. Shared that ?for collaborating to be effective, the other person needs to be as willing to compromise?. Client participated in activity, however became emotionally dysregulated when faced with potential conflict resulting in difficulties listening to peers? suggestions at times, as well as being overly assertive. To better address conflict, client wants to work on ?remain calm? by trying not to overreact when faced with difficult situations. Shared this could help with improving her ability to communicate in kinder and healthier ways which will prevent tension in relationships. Appeared to benefit from gaining strategies to help client better manage conflict. Will discharge from [facility] tx on this date and is encouraged to continue in individual outpatient tx as well as the Aftercare program. Narrative Note: []
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
== END 2021-08-24 13:02 | disposition home or self-care (01) ==
LOC: BHIOP 09:00
PROVIDERS: PCP Family Medicine; Visit Provider Psychiatry & Neurology Psychiatry
DX: F33.2 Major depressive disorder, recurrent severe without psychotic features (principal); F41.1 Generalized anxiety disorder; F50.9 Eating disorder, unspecified; F43.10 Post-traumatic stress disorder, unspecified; Z79.899 Other long term (current) drug therapy
CPT/HCPCS: S9480; 90832; 90834; 90837; 90853

== ENCOUNTER 2021-09-06 09:00 | Outpatient (RCR) | payer OTHER, SELFPAY ==
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
--- NOTE | 2021-09-13 14:00 | BH.SGPN.GN ---
Behaviors/Verbalizations/Mental Status: []Client alert and oriented, casual appearance. Eye contact fair. Motor activity appropriate. Speech within normal limits. Affect congruent, mood euthymic. Thoughts linear, logical, no signs of hallucinations or delusions. Client Response/Progress/Benefit: []Pt responded well to session AEB pt openly sharing thoughts and feelings and completing worksheet. Pt reported mental health positive as getting a job that she will start next week. Pt stated she chose a job that is not too stressful while she is going go the [employer] in the evenings. Pt noted additional mental health positive as feeling mentally stable the last few weeks. Pt reported stressor as the [employer] not notifying her about the status of her being honorably discharged from the . Pt responded well to group discussion and review about self-care. Pt stated she will work on following self-care activities: working out, make a healthy meal, stretch, limit cell phone time, go out with family, date night, and get out into nature. Pt seemed to benefit from support from peers and identifying self-care plan. Pt to continue aftercare to prevent decompensation and continue use of healthy coping.
--- NOTE | 2021-09-21 11:26 | BH.MTP ---
Master Treatment Plan - Patient Information Program Physician:: Taylor Brady Primary Therapist:: MELA Uriarte - Psychiatric Diagnoses Psychiatric Diagnoses:: 1. Major depressive disorder, recurrent, severe without psychosis. 2. Rule out bipolar, NOS. 3. Generalized anxiety disorder. 4. Eating disorder, NOS. 5. PTSD. 6. Cluster B traits. 7. Work, primary support issues Diagnosis Code(s):: F 33.2 - Estimated LOS Estimated LOS (in weeks):: 12 Problem/Goal #1 - Problem/Goal #1 Stated Goal:: Client will maintain or see a reduction in symptoms AEB client score on the DSM 5 cross-cutting measure and improve client's daily functioning. - Objectives Objective #1 Stated Objective: Client will continue to consistently apply healthy coping skills to maintain progress made in IOP tx. Interventions: Through group therapy, client will review warning signs and triggers as well as healthy coping skills learned in IOP tx to successfully maintain gains while transitioning into outpatient therapy. Discharge Criteria: Client will have accomplished this goal when client's score on the DSM-5 cross-cutting measure has either maintained or reduced over a 12 week period. Target Date: 12/20/21 Review Date: 10/25/21 Objective #2 Stated Objective: Client will learn and utilize 2-3 maintenance strategies to prevent decompensation. Interventions: Through group therapy, client will be provided with education on healthy maintenance behaviors, relapse prevention techniques, and healthy coping strategies. Discharge Criteria: Client will have accomplished this goal when can report using at least 2 maintenance skills to prevent decompensation. Target Date: 12/20/21 Review Date: 10/25/21
== END 2021-10-02 23:59 ==
LOC: BHOG 09:00
PROVIDERS: PCP Family Medicine; Referring Provider Psychiatry & Neurology Psychiatry; Visit Provider Psychiatry & Neurology Psychiatry
DX: F33.2 Major depressive disorder, recurrent severe without psychotic features (principal); F41.1 Generalized anxiety disorder; F50.9 Eating disorder, unspecified; F43.10 Post-traumatic stress disorder, unspecified
CPT/HCPCS: 90853

== ENCOUNTER 2021-10-03 08:00 | Outpatient (RCR) | payer OTHER, SELFPAY ==
--- NOTE | 2021-10-04 14:00 | BH.SGPN.GN ---
Behaviors/Verbalizations/Mental Status: []Client alert and oriented, casually dressed and groomed. Eye contact good. Motor activity appropriate. Speech within normal limits. Affect congruent. Mood euthymic. Thoughts linear, logical, no signs of hallucinations or delusions. Client Response/Progress/Benefit: [] Client responded well to session AEB client sharing thoughts and feelings and listening attentively to peers. Client stated she started her job and is trying to adjust to working full-time again. Client stated having a job will be helpful so she has routine/structure. Client stated yesterday she had a bad brain day which she explained she had some suicidal thoughts and sad mood. However, client reported she was able to challenge the suicidal thoughts and move on with her day. Client notes this as significant progress for her. Client contributed to the discussion on gratitude and its benefits. Client attentive during discussion of internal vs. external gratitude. Client created weekly plan on what she will identify for gratitude over the next 7 days. Appeared to benefit from connecting with peers and creating plan to identify gratitude. Pt plan included: a smell she loves, a person, something looking forward to, a food she loves, something in nature, a personality trait of hers, and something that makes her laugh. Will continue IOP aftercare to increase consistent use of healthy skills, challenge distorted thoughts and prevent further decompensation.
--- NOTE | 2021-10-11 14:00 | BH.SGPN.GN ---
Behaviors/Verbalizations/Mental Status: []Client alert and oriented, neatly dressed and groomed. Eye contact fair. Motor activity appropriate. Speech within normal limits. Affect constricted, mood euthymic. Thoughts linear, logical, no signs of hallucinations or delusions Client Response/Progress/Benefit: []Client responded well to session, reports feeling ?happy? 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 Client stated she was not expecting to pass, and she feels proud of herself. Client also has been using her skills more consistently, but sleep has been an issue recently. Contributing during discussion of vulnerability and benefits of practicing vulnerability. Shared being vulnerable with her mental health has helped client get on medications that help her and find healthy coping skills. Discussed ways we avoid feeling vulnerable and how this negatively affects mental health and relationships. Client shared she avoids vulnerability by ?disrupting moments of miles? in her life by preparing for the worst. Appeared to benefit from reflecting on the positive impact vulnerability can have on mental health. Will continue IOP aftercare to promote gains and reinforce healthy coping skills. Narrative Note: []
--- NOTE | 2021-10-11 16:51 | BH.MTP_ITS ---
Treatment Plan Review Date of Admission:: 09/06/21 Date of Treatment Plan Review:: 10/11/21 Admitting Diagnoses:: 1. Major depressive disorder, recurrent, severe without psychosis. 2. Rule out bipolar, NOS. 3. Generalized anxiety disorder. 4. Eating disorder, NOS. 5. PTSD. 6. Cluster B traits. 7. Work, primary support issues Current Diagnoses:: 1. Major depressive disorder, recurrent, severe without psychosis. F33.2 2. Rule out bipolar, NOS. 3. Generalized anxiety disorder. 4. Eating disorder, NOS. 5. PTSD. 6. Cluster B traits. 7. Work, primary support issues Patient's Response to Treatment:: Pt has responded well to aftercare program AEB pt's consistent attendance, contributions to group discussion and follow through on using skills outside treatment environment. Status of Current Problems and Symptoms: Pt continues to report mild depressive and anxious symptoms which is a decrease from admission to aftercare. 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 Pt's scores indicate a 42% reduction in overall symptoms at review compared to pt's DSM 5 discharge scores from [facility]. Problem #1 Problem Name:: Maintenance of progress Status of Goals:: Obj 1: goal met, ongoing work encouraged. Per pt's DSM 5 cross-cutting measure at review pt's score indicate a 33% reduction in depression and a 50% reduction in anxiety compared to DSM 5 scores at discharge from [facility]. Obj 2: goal met, ongoing work encouraged. Pt reports continuing to use healthy coping skills like grounding, breathing, and challenge negative thoughts. Since pt has been feeling more stable she has struggled with identifying skills she is using. This could be potential issue if doesn't continue to consistently practice skills, even when feeling better. Team Recommendations:: Team recommends continued focus on maintenance skills and showing consistent progress.
--- NOTE | 2021-10-18 14:00 | BH.SGPN.GN ---
Behaviors/Verbalizations/Mental Status: []Client alert and oriented, casually dressed and groomed. Eye contact good. Motor activity appropriate. Speech within normal limits. Affect congruent, mood euthymic. Thoughts linear, logical, no signs of hallucinations or delusions. Client Response/Progress/Benefit: []Pt receptive of session, engaged throughout. Pt identified mental health positive as following her maintenance plan besides recently struggling with working out. Pt stated additional mental health positive as still feeling stable and being able to manage emotions. 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 Receptive of discussion on personal accountability and its importance in maintaining mental health stability. Pt worked cooperatively with group to identify benefits of maintaining personal accountability. Engaged in brainstorming strategies for improving ability to hold themselves accountable. Pt seemed to benefit from support from peers and increasing understanding of personal accountability benefits and strategies. Will continue IOP aftercare group to maintain gains and prevent decompensation.
== END 2021-11-02 23:59 ==
LOC: BHOG 08:00
PROVIDERS: PCP Family Medicine; Referring Provider Psychiatry & Neurology Psychiatry; Visit Provider Psychiatry & Neurology Psychiatry
DX: F33.2 Major depressive disorder, recurrent severe without psychotic features (principal); F41.1 Generalized anxiety disorder; F50.9 Eating disorder, unspecified; F43.10 Post-traumatic stress disorder, unspecified
CPT/HCPCS: 90853

== ENCOUNTER 2021-11-07 09:00 | Outpatient (RCR) | payer OTHER, SELFPAY ==
--- NOTE | 2021-11-15 14:00 | BH.SGPN.GN ---
Behaviors/Verbalizations/Mental Status: []Client alert and oriented, casually dressed and groomed. Eye contact good. Motor activity appropriate. Speech within normal limits. Affect congruent, mood euthymic and anxious. Thoughts linear, logical, no signs of hallucinations or delusions. Client Response/Progress/Benefit: [] Pt responded well to session, engaged and remaining attentive and willing to participate in discussion throughout. Reports feeling ?nervous but content? 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 Noted using skills of going on walks, reaching out, and going for long drives. Pt reports connecting with the topic of routine and structure and it?s importance in ongoing mental health maintenance. Pt engaged in brainstorming of various daily routine ideas. Pt completed task of identifying current routine practices as well as important tasks to begin more regularly implementing into a structured daily routine. Shared plans to begin more consistently planning the activities she already completes each day, as well as make more efforts to incorporate daily self-care. Pt seemed to benefit from support from peers and learning about benefits of routine. Pt to continue aftercare group to promote ongoing use of healthy coping, continue to promote emotion regulation, and prevent decompensation. Narrative Note: []
--- NOTE | 2021-11-15 14:43 | BH.MTP_ITS ---
Treatment Plan Review Date of Admission:: 09/06/21 Date of Treatment Plan Review:: 11/15/21 Admitting Diagnoses:: 1. Major depressive disorder, recurrent, severe without psychosis. F33.2 2. Rule out bipolar, NOS. 3. Generalized anxiety disorder. 4. Eating disorder, NOS. 5. PTSD. 6. Cluster B traits. 7. Work, primary support issues Current Diagnoses:: 1. Major depressive disorder, recurrent, severe without psychosis. F33.2 2. Rule out bipolar, NOS. 3. Generalized anxiety disorder. 4. Eating disorder, NOS. 5. PTSD. 6. Cluster B traits. 7. Work, primary support issues Patient's Response to Treatment:: Pt has responded well to treatment AEB active participation in group sessions and overall consistent attendance. 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 Pt has shown significant treatment progress AEB pt reporting improved mood stability, continued use of healthy coping skills and at review a 52% reduction in symptoms per DSM 5 cross cutting measure compared to pt's DSM 5 scores at d/c from [facility]. Problem #1 Problem Name:: Maintenance of progress Status of Goals:: Obj 1: goal met, ongoing work encouraged. Per pt's DSM 5 cross-cutting measure at review pt's score indicate a 67% reduction in depression and a 33% reduction in anxiety compared to DSM 5 scores at discharge from [facility]. Anxiety has slightly increased compared to last treament review in on 10/11/21. This could be attributed to pt starting Cerebrex. Obj 2: goal met, ongoing work encouraged. Pt reports continuing to use healthy coping skills like grounding, breathing, going on walks, reaching out, going for long drives and challenge negative thoughts. Pt also reports feeling more stable. Team Recommendations:: Team recommends continued focus on maintenance skills and showing consistent progress.
== END 2021-12-03 23:59 ==
LOC: BHOG 09:00
PROVIDERS: PCP Family Medicine; Referring Provider Psychiatry & Neurology Psychiatry; Visit Provider Psychiatry & Neurology Psychiatry
DX: F33.2 Major depressive disorder, recurrent severe without psychotic features (principal); F41.8 Other specified anxiety disorders; F43.10 Post-traumatic stress disorder, unspecified; F50.9 Eating disorder, unspecified
CPT/HCPCS: 90853

== ENCOUNTER 2021-11-08 11:21 | Outpatient (CLI) | payer OTHER, SELFPAY | END 2021-11-08 23:59 | disposition short-term general hospital (02) | LOC: LABSPEC 11:22 | PROVIDERS: PCP Family Medicine; Referring Provider Physician Assistant; Visit Provider Physician Assistant | DX: U07.1 COVID-19 (principal) | CPT/HCPCS: 87635; U0003; U0005 ==

== ENCOUNTER 2021-12-04 07:39 | Outpatient (RCR) | payer OTHER, SELFPAY ==
--- NOTE | 2021-12-28 12:15 | BH.COMM_ITS ---
Communication Note - Communication with Client Communication Note: Pt called in requesting to have documentation sent to Dyana Ingram ([employer]) regarding her admission to [facility]. Verbal consent given by pt. Requesting that all documentation (including psychotherapy notes) be sent via an email given.
== END 2021-12-13 14:45 | disposition home or self-care (01) ==
LOC: BHOG 07:39
PROVIDERS: PCP Family Medicine; Referring Provider Psychiatry & Neurology Psychiatry; Visit Provider Psychiatry & Neurology Psychiatry
DX: F33.2 Major depressive disorder, recurrent severe without psychotic features (principal); F41.8 Other specified anxiety disorders; F43.10 Post-traumatic stress disorder, unspecified; F50.9 Eating disorder, unspecified

== ENCOUNTER → 2022-06-11 | Outpatient (CLI) | payer SELFPAY ==
[2022-07-24 12:34] LABS: HPV Reflexed? NOT INDICATED
== END | disposition home or self-care (01) ==
PROVIDERS: PCP Family Medicine; Visit Provider Nurse Practitioner Women's Health
DX: Z12.4 Encounter for screening for malignant neoplasm of cervix (principal)
CPT/HCPCS: 88175; G0145

== ENCOUNTER 2024-07-27 10:04 | Day surgery (SDC) | payer OTHER, SELFPAY ==
[2024-07-27] VITALS (9 sets, daily range): BP systolic 95–111; BP diastolic 66–72; PULSE 57–76; RESP 14–18; TEMP 36.6–36.9; O2SAT 98–100; BMI 27.0
[2024-07-27 10:31] LABS: Internal QC Validated? YES +Cl - CLEAR BKGD
[2024-07-27 10:32] LABS: Pregnancy, Urine Negative Negative
[2024-07-27] MEDS: Lactated Ringers 1,000 ML 15 ML IV (10:38)
[2024-07-27 10:40] LABS: Hematocrit 41.3 % (37-47); Hemoglobin 13.2 g/dL (12.0-15.0); Mean Corpuscular Hgb 28.3 pg (27.0-32.0); Mean Corpuscular Volume 88.6 fL (81-99); Mean Platelet Vol. 10.6 fl (6.2-12.0); Platelet Count 271 K/mm3 (150-450); RBC Distribution Width CV 13.3 % (11.6-14.6); RBC Distribution Width SD 43.6 fl (35.1-43.9); Red Blood Count 4.66 M/mm3 (4.2-5.4); White Blood Count 6.9 K/mm3 (4.4-11.0)
--- NOTE | 2024-07-27 11:12 | PCM.PRE.AN2 ---
ASA Classification* ASA Classification ASA Classification: 2 Assessment & Plan Anesthesia* Anesthesia Assessment Anesthesia Assessment: Discussed sedation and/or anesthesia options, risks, benefits, and alternatives with patient/parents/legal guardian/POA. Questions invited. The patient/parents/legal guardian/POA seems to understand and agrees to proceed with anesthesia plan. Reviewed the physical assessment, medical history, allergy history and patient home medications list prior to surgery/procedure/anesthetic and documented any changes. Performed airway and anesthesia risk assessments. Anesthesia Type Anesthesia Type: General History Source History Obtained from:: Patient and Chart Anesthesia Focused Assessment* Temperature: 97.8 F Pulse Rate: 72 Blood Pressure: 111/72 Respiratory Rate: 18 Pulse Ox: 99 Oxygen Delivery Method: Room Air Airway Assessment Mouth opens: >3 cm Mallampati Score: II Teeth Condition: Intact Neck Range of motion (ROM): Full ROM Focused Labs Anesthesia Preop lab: CBC WBC 6.9 K/mm3 (4.4-11.0) 07/27/24 10:30 RBC 4.66 M/mm3 (4.2-5.4) 07/27/24 10:30 Hgb 13.2 g/dL (12.0-15.0) 07/27/24 10:30 Hct 41.3 % (37-47) 07/27/24 10:30 Plt Count 271 K/mm3 (150-450) 07/27/24 10:30 CHEMISTRY TSH 1.62 uIU/mL (0.358-3.74) 11/10/20 11:33 COAG Urine Test Negative Negative 07/27/24 10:15 Pre-Assessment Diagnosis/Proposed Procedure Planned Operative Procedure(s): (B) Laparoscopic, Salpingectomy Anesthesia History 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 When Was Last Pacemaker Check QUESTION #4 FULL TEXT: You/Your Family Experience fever (hyperthermia) with Anesthesia Last Oral Intake Last Oral intake: Last Oral Intake NPO since 00:00 07/27/24 10:39 Meds taken in AM with sips of No 07/27/24 10:39 water? Meds patient instructed to take am of surgery PONV PONV - abstract searcher: PONV - abstract searcher Female Yes 07/21/24 09:27 HX of Motion Sickness No 07/21/24 09:27 HX of N/V After Surgery No 07/21/24 09:27 Non-Smoker Yes 07/21/24 09:27 Duration of Surgery greater No 07/21/24 09:27 than 60 minutes Number of Risk Factors 2 07/21/24 09:27 PONV Score Moderate Risk 07/21/24 09:27 Height & Weight Height & Weight: Anesthesia: Height & Weight Height 5 ft 1 in 07/27/24 10:39 Weight: 64.864 kg 07/27/24 10:39 Body Mass Index (BMI) 27.0 07/27/24 10:39 Respiratory Assessment Respiratory Assessment - abstract searcher: Respiratory Tract Infection Hx - abstract searcher Hx Respiratory Tract Infection No 07/21/24 09:27 STOP Sleep Apnea STOP Sleep Apnea - abstract searcher: STOP Sleep Apnea - abstract searcher Hx Hypertension No 07/21/24 09:27 Hx Sleep Apnea No 07/21/24 09:27 CPAP BIPAP Do you snore loudly (louder No 07/21/24 09:27 than talking or can be heard Do you often feel tired/ No 07/21/24 09:27 fatigued/ sleepy during daytime? Has anyone observed you stop No 07/21/24 09:27 breathing during sleep? STOP Results Negative 07/21/24 09:27 QUESTION #5 FULL TEXT : Do you snore loudly (louder than talking or can be heard through closed doors)? 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 Specify any problems Hx of Preganancy in last 3 No 07/21/24 09:27 Months Nurse Filling Out Transfusion VCHRISTIN 07/21/24 09:27 & Questions: Date: 07/21/24 07/21/24 09:27 Time: 07/21/24 09:27 Patient unable to answer at this time (ie. confused, unrespo /Reproduction History /Reproductive History - abstract searcher: /Reproductive Hx- abstract searcher Hx Now No 07/21/24 09:27 Gestational Age (in weeks): EDC: Hx Hx Para Hx Section SAB No 07/21/24 09:27 Active Medications Active Medications: Current Medications Generic Name Dose Route Start Last Admin Trade Name Freq PRN Reason Stop Dose Admin Lactated Ringer's 1,000 mls @ 15 mls/hr 07/27/24 10:15 07/27/24 10:38 IV 15 mls/hr .Q48H ABIGAIL Administration PFSH Medical History Wears glasses Depression Anxiety Alcohol use Non-smoker PTSD (post-traumatic stress disorder) Eating disorder, unspecified Generalized anxiety disorder Bipolar disorder, unspecified Major depressive disorder, recurrent severe without psychotic features Self-inflicted injury Bronchospasm, exercise-induced Home Medications ?Medication ?Instructions ?Recorded ?Last Taken ?Type lamotrigine 100 mg tablet 100 mg PO DAILY 04/29/24 07/26/24 History sertraline 50 mg tablet (Zoloft) 50 mg PO DAILY 04/29/24 07/26/24 History levonorgestrel-ethinyl estradiol 1 tab PO DAILY #84 tabs 05/19/24 07/26/24 Rx 90 mcg-20 mcg (28) tablet Allergy/AdvReac Type Severity Reaction Status Date / Time amoxicillin trihydrate (From Allergy Rash Verified 07/27/24 10:38 Augmentin) potassium clavulanate (From Allergy Rash Verified 07/27/24 10:38 Augmentin) Family History Grandmother Breast cancer Hypertension Heart disease Grandfather Diabetes Heart disease Other Bladder cancer Surgical History (Updated 07/27/24 @ 11:[address] Farhat Lopez MD) H/O wisdom tooth extraction Social History Smoking Status: Never smoker alcohol intake: current details: occasionally substance use type: does not use caffeine: No what type of physical activity do you participate in: running and weight training frequency: 3-4 times per week seatbelt use: always do you feel safe at home: Yes Review of Systems (Anesthesia) ROS Narrative System reviewed and no additional complaints, except as documented.
--- NOTE | 2024-07-27 12:12 | HP.PCM_ITS ---
History and Physical Date of Admission: 07/27/24 Intake Vital Signs 04/29/2414:00 06/02/2414:00 Height 5 ft 1 in 5 ft 1 in Weight: 146 lb 148 lb 6 oz BMI 27.6 28.0 BP 103/66 110/72 Intake Visit Reasons: SURG CONSULT Chief Complaint: Surg. consult Track Inspecting Supervisor Required: No Is patient in pain?: No Allergies amoxicillin trihydrate (From Augmentin) Allergy (Verified 06/02/24 13:58) Rashpotassium clavulanate (From Augmentin) Allergy (Verified 06/02/24 13:58) Rash Medications ?Medication ?Instructions ?Recorded ?Confirmed ?Type lamotrigine 100 mg tablet 100 mg PO DAILY 04/29/24 06/02/24 History sertraline 50 mg tablet (Zoloft) 50 mg PO DAILY 04/29/24 06/02/24 History levonorgestrel-ethinyl estradiol 1 tab PO DAILY #84 tabs 05/19/24 06/02/24 Rx 90 mcg-20 mcg (28) tablet Is last menstrual period known: No Post menopausal: No Patient : No : No Control Method: OCP Nurse's Note: No menses; takes OCP continuously. [facility] Medical History PTSD (post-traumatic stress disorder) Eating disorder, unspecified Generalized anxiety disorder Bipolar disorder, unspecified Major depressive disorder, recurrent severe without psychotic features Self-inflicted injury Bronchospasm, exercise-induced Family History Grandmother Breast cancer Hypertension Heart diseaseGrandfather Diabetes Heart diseaseOther Bladder cancer Social History Smoking Status: Never smoker alcohol intake: current details: occasionally substance use type: does not use caffeine: No what type of physical activity do you participate in: running and weight training frequency: 3-4 times per week seatbelt use: always do you feel safe at home: Yes HPI SURG CONSULT Details: PUJA EM is a 24 year old G0 who presents for a surgical consultation. She would like to proceed with permanent sterilization. 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 Neither of them want children and would like permanent sterilization. She tried ocps and this cause weight gain. She is note interested in iud, nexplanon, or depo provera. ROS Const ROS Unobtainable: All systems reviewed & are unremarkable except as noted in H Resp Resp: Reports system reviewed and no additional complaints, except as documented; Denies cough GI GI: Reports as per HPI Psych Psych: Reports system reviewed and no additional complaints, except as documented Exam Const General: cooperative, healthy appearing, comfortable and no acute distress Resp Effort & Inspection: normal respiratory effort Skin General: no rashes or lesions noted Psych Appearance: grossly normal Speech and Movement: speech and movement normal Coding Level of Care Code Off vis,est,level 4 Diagnoses Contraception management Z30.9 Assessment and Plan Assessment and Plan (1) Contraception management: Status: Acute Plan: After discussing the patient's diagnosis and treatment plan options, patient wishes to proceed with surgical management. I have discussed with the patient the risks, benefits, and alternatives of the procedure which include but are not limited to risks of anesthesia, bleeding, infection, possible damage to bowel, bladder, or surrounding vasculature which could lead to additional surgery to evaluate any complications. Patient agrees to procedure and wishes to proceed. ACOG/uptodate references given for additional information regarding procedure. plan is for laparoscopic bilateral salpingectomy.
--- NOTE | 2024-07-27 12:12 | PCM.DC ---
Discharge Instructions Diet Discharge Diet: No restrictions Activity Discharge Activity: Return to Normal Activity, May Not Drive (for two weeks or while taking narcotic pain medications.), May Shower and May Take a Tub Bath (in 7 days) May resume sexual activity in: 1 week Weight Bearing Status: Full weight bearing Dressing / Incision Call your doctor if you observe: Using more than 1 pad per hour, Shortness of breath, Chest pain and Uncontrolled pain Suture Line Care: Avoid Pulling/Pushing and Avoid Pinching/Bending Remove Dressing in: 1 week (if present) Cleanse incision/area with: Soap & Water and Keep Dressing Clean & Dry Follow Up Care Please Follow Up With: Deepa Pinto DO When: Call to make an appointment with your doctor for a follow up incision check in 1-2 weeks. Test Results: Test results from this visit will be discussed in further detail at your follow-up appointment, if applicable. Discharge Plan Admission Primary Reason for Your Visit: laparoscopic bilateral salpingectomy Attending Provider: Deepa Pinto Primary Care Provider: Destin Raymond Instructions Print Language: American Discharge Orders/Prescriptions Prescriptions: New ibuprofen 800 mg tablet 800 mg PO Q8H PRN (Reason: pain) Qty: 30 0RF oxycodone-acetaminophen [Percocet] 5-325 mg tablet 1 tab PO Q4H PRN (Reason: pain) 7 Days Qty: 10 0RF Rx Instructions: 1-2 tabs q 4 hrs as needed for pain Continued sertraline [Zoloft] 50 mg tablet 50 mg PO DAILY lamotrigine 100 mg tablet 100 mg PO DAILY Referrals / Follow Up: Destin Raymond MD [Primary Care Provider] - Disposition Disposition (needs filled in before D/C Order can be placed): Home, Self Care
[2024-07-27] MEDS: Bupivacaine 0.25% 30 ML Vial (12:44)
--- NOTE | 2024-07-27 12:59 | PCM.OPRPT ---
Problems Associated Problem List Diagnoses (1) Contraception management: Report of Operation Date of Procedure: 07/27/24 Pre-Operative Diagnosis: desires permanent sterilization Post-Operative Diagnosis: desires permanent sterilization Surgery/Procedure Performed:: laparoscopic bilateral salpingectomy Surgeon: Deepa Pinto wire rope sales representative: Teresa Delgado Type of Anesthesia: General Anesthesiologist: Farhat Lopez Special Medications: none Specimen's removed: bilateral fallopian tubes Drains: none Estimated Blood Loss (mL): 3cc Fluids Replaced: 1700cc Description of Procedure: Patient was taken in the operating room and was placed under general anesthesia was prepped and draped in normal sterile fashion in the dorsal lithotomy position. Bladder was drained of clear urine and SCDs were on preoperatively. Uterus was sounded and a uterine manipulator was placed after dilating. Attention was then paid to the abdominal portion of the procedure and the umbilicus was elevated and injected with Marcaine and after a 5 mm incision was made and a 5 mm trocar was inserted into the abdomen under direct visualization using the laparoscope. Abdomen was insufflated with CO2 gas and a 5 mm optical trocar was placed under direct visualization. A left lower quadrant 5 mm port and a 3rd 5 mm port suprapubically were placed under direct visualization. Uterus was well visualized and bilateral fallopian tubes identified and bilateral tubes were elevated and transecting across the mesosalpinx and the attachment to the uterine corpus bilaterally the tubes were removed without complication. Excellent hemostasis was noted. Fallopian tubes were removed through the lower port sites without complication. Liver and upper abdomen were visualized notably within normal limits and no other gross abnormalities were seen in the abdomen. All instruments removed from the abdomen after gas was desufflated. Port sites were closed with 3-0 Monocryl Steri's and op sites were applied. All instruments removed from the vagina and patient was awoken and taken recovery in stable condition. My physician office assistant helped with holding the camera and with suture cutting. Grafts/Implants Used: none Procedure Start Time: 12:43 Procedure Stop Time: 12:58 Complications none Admit VTE Documentation VTE Present on Admission: No VTE Mechan Device Prophylaxis: SCD's VTE Pharm Prophylaxis ordered?: No Multi Select Codes Urinary/Genital Urinary/Genital CPT Codes: 17436 Laproscopic BS/O
--- NOTE | 2024-07-27 13:12 | PCM.POST.ANE ---
Anesthesia: Postop Eval I Current Vital Signs Temperature: 98.2 F Pulse Rate: 75 Blood Pressure: 101/67 Respiratory Rate: 18 Pulse Ox: 99 Oxygen Delivery Method: Room Air Assessment Airway patent: Yes Spontaneous unlabored respirations: Yes Mental status: Awake and Calm nausea: No Vomiting: No Anesthesia Complication: No Fluid Hydration Crystalloid volume administer (ml): 700 Total IV fluid infused: 700 Progress Note Post-operative progress note: DENIES PAIN; NO C/O Anesthesia document: Postop Eval 1 completed: Yes
--- NOTE | 2024-07-27 14:38 | POSTOPAN2_ITS ---
Anesthesia Postop Eval I Sum Postop Eval Completion status Anesthesia document: Postop Eval 1 completed: Yes Anesthesia Postop Eval I Summary Anesthesia Postop Eval I Summary: Anesthesia Postop Eval I: Assessment Summary Airway patent Yes 07/27/24 13:13 SALES ENABLEMENT ANALYST.SCHR Spontaneous unlabored Yes 07/27/24 13:13 SALES ENABLEMENT ANALYST.SCHR respirations Mental status Awake,Calm 07/27/24 13:13 SALES ENABLEMENT ANALYST.SCHR nausea No 07/27/24 13:13 SALES ENABLEMENT ANALYST.SCHR Vomiting No 07/27/24 13:13 SALES ENABLEMENT ANALYST.SCHR Anesthesia Postop Eval I: Fluid Summary Crystalloid volume administer 700 07/27/24 13:13 SALES ENABLEMENT ANALYST.SCHR (ml) Colloids volume administered ( ml) Blood Product volume administered (ml) Total IV fluid infused 700 07/27/24 13:13 SALES ENABLEMENT ANALYST.SCHR Anesthesia Postop Eval I: Summary Notes Anesthesia Complication No 07/27/24 13:13 SALES ENABLEMENT ANALYST.SCHR Anesthesia Complication Comment: Post-operative progress note DENIES PAIN; NO C/ 07/27/24 13:13 SALES ENABLEMENT ANALYST.SCHR O Anesthesia: Postop Eval II Evaluation Mental status: Awake and Calm Pain Level: 1 nausea: No Vomiting: No Complications Anesthesia Complication: No
--- NOTE | 2024-07-27 14:38 | PCM.POSTANE2 ---
Anesthesia Postop Eval I Sum Postop Eval Completion status Anesthesia document: Postop Eval 1 completed: Yes Anesthesia Postop Eval I Summary Anesthesia Postop Eval I Summary: Anesthesia Postop Eval I: Assessment Summary Airway patent Yes 07/27/24 13:13 DROP WIRE STRINGER.SCHR Spontaneous unlabored Yes 07/27/24 13:13 DROP WIRE STRINGER.SCHR respirations Mental status Awake,Calm 07/27/24 13:13 DROP WIRE STRINGER.SCHR nausea No 07/27/24 13:13 DROP WIRE STRINGER.SCHR Vomiting No 07/27/24 13:13 DROP WIRE STRINGER.SCHR Anesthesia Postop Eval I: Fluid Summary Crystalloid volume administer 700 07/27/24 13:13 DROP WIRE STRINGER.SCHR (ml) Colloids volume administered ( ml) Blood Product volume administered (ml) Total IV fluid infused 700 07/27/24 13:13 DROP WIRE STRINGER.SCHR Anesthesia Postop Eval I: Summary Notes Anesthesia Complication No 07/27/24 13:13 DROP WIRE STRINGER.SCHR Anesthesia Complication Comment: Post-operative progress note DENIES PAIN; NO C/ 07/27/24 13:13 DROP WIRE STRINGER.SCHR O Anesthesia: Postop Eval II Evaluation Mental status: Awake and Calm Pain Level: 1 nausea: No Vomiting: No Complications Anesthesia Complication: No
--- NOTE | 2024-07-28 | FALS_PTH ---
PATIENT: PUJA EM LOC: [facility] [place] U#:[id number] AGE/SX: 24/F ROOM: RE07/27/[address]: Dr. Deepa Pinto DO : 2000 BED: DIS: 07/27/2024 SPEC #: [id number] RECD: 07/28/24 12:18 STATUS: ANKUR REAhmet #: [id number] BYRON: 07/28/24 00:[address]: Deepa Pinto DEPT: SURGICAL PATHOLOGY RECD BY: Rocky Emanuel ENTERED: 07/28/24 12:18 SP TYPE: FALL TUBES OTHR DR: Dr. Destin Raymond MD Tissues: Fallopian tube Procedures: Surgery Specimen Level II HEADER OPERATION: Laparoscopic salpingectomy PRE-OP DIAGNOSIS: Contraception management TISSUE SUBMITTED: Bilateral fallopian tubes MICROSCOPIC DIAGNOSIS Bilateral fallopian tubes, salpingectomy: Bilateral fallopian tubes, no pathologic diagnosis. SJ: 07/29/2024 MICROSCOPIC DESCRIPTION Slides are reviewed. GROSS DESCRIPTION Received in fixative is one container labeled with the patient's name and designated bilateral fallopian tubes. The specimen consists of bilateral fallopian tubes including fimbrial ends measuring 4.5 cm in length and 0.5 cm in diameter and 5.0cm in length and 0.6cm in diameter. The fallopian tubes are not identified as right or left. Sections reveal unremarkable cut surfaces. Peanut Blancher sections are submitted in two cassettes with each cassette containing one fallopian tube. / DALI: 07/28/2024 TC:4 CPT: 99066 x2
== END 2024-07-27 14:34 | disposition home or self-care (01) ==
LOC: SDC 10:12 → AC 10:14
PROVIDERS: PCP Family Medicine; Referring Provider Obstetrics & Gynecology; Visit Provider Obstetrics & Gynecology
PROC: (CPT 58661; principal; 2024-07-27 11:20)
DX: Z30.2 Encounter for sterilization (principal); F31.9 Bipolar disorder, unspecified; F41.1 Generalized anxiety disorder; Z79.899 Other long term (current) drug therapy
CPT/HCPCS: 58661; 00840; 81025; 85027; 86850; 86900; 86901; 88302; J7120; J2405